=== PATIENT | female | born 1950 | race Caucasian/White ===

== ENCOUNTER 2016-07-06 14:54 | Emergency (ER) | payer BC, OTHER ==
[~2016-07-06] VITALS: Ht 157.5 cm; Wt 71.0 kg
[~2016-07-06 14:54] MED LIST: ACT30 PO; GLIM2TAB PO; LISI-729 PO; LPT/40 PO; ZNTT/150 PO
[2016-07-06 14:59] VITALS: Ht 157.5 cm; Wt 71.0 kg
[2016-07-06] MEDS ORDERED: ONDANSETRON INJ 2 MG/ML 2 ML VIAL IV STA (15:07)
[2016-07-06] MEDS ORDERED: SODIUM CHLORIDE 0.9% 1000ML 1,000 ML IV STA (15:07)
[2016-07-06 15:37] LABS: HEMATOCRIT 36.9 % (37-47); MEAN CELL VOLUME 88.1 fL (80-100); MEAN CORPUSCULAR HEMOGLOBIN 30.8 pg (25-34); MEAN PLATELET VOLUME 10.3 fL (7.4-10.4); PLATELET COUNT 121 K/uL (130-400); RED BLOOD COUNT 4.19 M/uL (4.2-5.4)
[2016-07-06 15:52] LABS: BUN/CREATININE RATIO 25.1 (10-20); CALCIUM 8.1 mg/dl (8.5-10.1); CREATININE 1.4 mg/dl (0.60-1.20)
[2016-07-06 15:53] LABS: COMPLETE YES; EOS % 0.2 %; IG% 0.3 %; LYMPH % 12.4 %; LYMPH ABS # 0.78 K/uL (1.2-3.4); MONO % 4.4 %; NEUT % 82.7 %
[2016-07-06] MEDS ORDERED: POTASSIUM CHLORIDE 10 MEQ / 100ML WTR IV STA (16:16)
[2016-07-06] MEDS ORDERED: POTASSIUM CHLORIDE 10 MEQ TABCR PO STA (16:16)
[2016-07-06] MEDS ORDERED: ONDA4TAB10 SL (16:19)
[2016-07-06 16:28] VITALS: TEMP 38.5
[2016-07-06] MEDS ORDERED: ACETAMINOPHEN 500 MG TAB PO STA (16:32)
--- NOTE | 2016-07-06 17:38 | EMERGENCY ROOM VISIT NOTE ---
History Report prepared by Christine: Kenzie Chen Under the Supervision of: Dr. Leonardo Harrell M.D. First contact with patient: 15:03 Chief Complaint: DEHYDRATION Stated Complaint: DEHYDRATED Nursing Triage Summary: pt c/o diarrhea since friday has been vomiting went to [facility] sent here for fluids and further eval History of Present Illness The patient is a 66 year old female who presents to the Emergency Room with complaints of persistent, but improving vomiting and diarrhea that began Friday. She currently rates her discomfort as a 1/10 in severity. The patient states that she has been sick since Friday, but states that her symptoms are improving. She states that she went to her PCP today for evaluation and states that she was sent to the emergency department for further work up concerning dehydration. The patient denies any recent antibiotic use, sick contacts with similar symptoms, or foreign travel. She states that her diarrhea is loose and watery. The patient stats that her last emesis episode was this morning. She notes a history of diabetes, stating that she takes medication daily. The patient denies any fever or abdominal pain. Source of History: patient Onset: Friday Position: other (global) Symptom Intensity: 1/10 Quality: other (vomiting and diarrhea) Timing: other (improving) Associated Symptoms: No abdominal pain, No fevers Review of Systems See HPI for pertinent positives & negatives. A total of 10 systems reviewed and were otherwise negative. Past Medical & Surgical Medical Problems: (1) Breast cancer (2) Diabetes Family History No pertinent family history stated. Social History Smoking Status: Never Smoker Marital Status: Housing Status: lives with significant other Occupation Status: employed Current/Historical Medications Scheduled Atorvastatin (Lipitor), 40 MG PO DAILY Glimepiride (Amaryl), 2 MG PO morning Lisinopril (Zestril), 5 MG PO DAILY Ondasetron Odt (Zofran Odt), 4 MG SL Q6H Ranitidine (Zantac), 150 MG PO BID Allergies Coded Allergies: Metformin (Unverified Adverse Reaction, Intermediate, n/v, 07/06/16) Physical Exam Vital Signs Date Time Temp Pulse Resp B/P Pulse Ox O2 Delivery O2 Flow Rate FiO2 07/06/16 16:28 38.5 58 20 120/49 94 Room Air 07/06/16 14:59 36.7 69 18 106/58 95 Room Air Physical Exam Constitutional: Vital signs reviewed. Eyes: Pupils are equal round reactive to light. Conjunctiva are noninjected. ENT: Pharynx is clear without erythema or exudate. Mucous membranes are dry. Neck supple without meningeal signs. Respiratory: Clear to auscultation bilaterally. Breath sounds are equal bilaterally. Cardiovascular: Regular rate and rhythm. No rubs or gallops. GI: Soft, nondistended and nontender. Bowel sounds are present. Musculoskeletal: No peripheral edema. Integumentary: No cyanosis. Neurological: The patient is awake and alert. No focal deficits. Psychiatric: Normal affect. Medical Decision & Procedures Laboratory Results 07/06/16 15:30 Red Blood Count 4.19, Mean Corpuscular Volume 88.1, Mean Corpuscular Hemoglobin 30.8, Mean Corpuscular Hemoglobin Concent 35.0, Mean Platelet Volume 10.3, Neutrophils (%) (Auto) 82.7, Lymphocytes (%) (Auto) 12.4, Monocytes (%) (Auto) 4.4, Eosinophils (%) (Auto) 0.2, Basophils (%) (Auto) 0.0, Neutrophils # (Auto) 5.21, Lymphocytes # (Auto) 0.78, Monocytes # (Auto) 0.28, Eosinophils # (Auto) 0.01, Basophils # (Auto) 0.00 07/06/16 15:30 Test 07/06/16 15:30 White Blood Count 6.30 K/uL (4.8-10.8) Red Blood Count 4.19 M/uL (4.2-5.4) Hemoglobin 12.9 g/dL (12.0-16.0) Hematocrit 36.9 % (37-47) Mean Corpuscular Volume 88.1 fL (80-100) Mean Corpuscular Hemoglobin 30.8 pg (25-34) Mean Corpuscular Hemoglobin Concent 35.0 g/dl (32-36) Platelet Count 121 K/uL (130-400) Mean Platelet Volume 10.3 fL (7.4-10.4) Neutrophils (%) (Auto) 82.7 % Lymphocytes (%) (Auto) 12.4 % Monocytes (%) (Auto) 4.4 % Eosinophils (%) (Auto) 0.2 % Basophils (%) (Auto) 0.0 % Neutrophils # (Auto) 5.21 K/uL (1.4-6.5) Lymphocytes # (Auto) 0.78 K/uL (1.2-3.4) Monocytes # (Auto) 0.28 K/uL (0.11-0.59) Eosinophils # (Auto) 0.01 K/uL (0-0.5) Basophils # (Auto) 0.00 K/uL (0-0.2) RDW Standard Deviation 43.5 fL (36.4-46.3) RDW Coefficient of Variation 13.4 % (11.5-14.5) Immature Granulocyte % (Auto) 0.3 % Immature Granulocyte # (Auto) 0.02 K/uL (0.00-0.02) Anion Gap 15.0 mmol/L (3-11) Est Creatinine Clear Calc Drug Dose 37.5 ml/min Estimated GFR () 45.9 Estimated GFR (Non- 39.6 BUN/Creatinine Ratio 25.1 (10-20) Calcium Level 8.1 mg/dl (8.5-10.1) Laboratory results as reviewed by me. Medications Administered Medications (Trade) Dose Ordered Sig/Dayne Route Start Time Stop Time Status Last Admin Dose Admin Sodium Chloride (Nss 1000ml) 1,000 ml @ 999 mls/hr Q1H1M STAT IV 07/06/16 15:07 07/06/16 16:07 DC 07/06/16 15:26 999 MLS/HR Ondansetron HCl (Zofran Inj) 4 mg NOW STAT IV 07/06/16 15:07 07/06/16 15:08 DC 07/06/16 15:26 4 MG Potassium Chloride (Klor-Con M10) 40 meq NOW STAT PO 07/06/16 16:16 07/06/16 16:17 DC 07/06/16 16:23 40 MEQ Potassium Chloride (Kcl 10 Meq / Wtr) 10 meq NOW STAT IV 07/06/16 16:16 07/06/16 16:17 DC 07/06/16 16:22 10 MEQ Acetaminophen (Tylenol Tab) 1,000 mg NOW STAT PO 07/06/16 16:32 07/06/16 16:33 DC 07/06/16 16:34 1,000 MG ED Course 1504: The patient was evaluated in room B11B. A complete history and physical exam was performed. 1507: Ordered Zofran Inj 4 mg IV, Sodium Chloride 1000 ml @ 999 mls/hr IV. 1616: I reevaluated the patient and she states that she feels better. I discussed the exam findings with her and I discussed the treatment plan. Ordered Potassium Chloride 10 meq IV, Potassium Chloride 40 meq PO. 1632: Per nursing staff, the patient has a fever. Ordered Acetaminophen 1000 mg PO. 1650: I reevaluated the patient and she has no other complaints other than feeling warm. She has a fever at this time. The patient denies any abdominal pain, headaches, or other complaints. Medical Decision This is a 66-year-old female who presents with vomiting and diarrhea. Differential diagnosis includes dehydration, electrolyte abnormality, foodborne illness, gastroenteritis. I did perform a limited focused review of portions of the patient's old chart on the electronic medical record. The patient has had no recent pertinent visits to this hospital. I did evaluate the patient as noted above. The patient is presenting with improving vomiting and diarrhea. She does state that she was sent here by her doctor for dehydration. She did vomit earlier today. She denies any abdominal pain or fever. Her symptoms are consistent with a viral gastroenteritis. IV access was established. I did treat patient with IV Zofran and normal saline IV. I did order and review the patient's blood work as noted in the electronic medical record. She does have hypokalemia likely from the diarrhea. Her white blood cell count is not elevated. I did reassess the patient. She is feeling much better. I did discuss the test results with her. She did state she felt warm and her temperature was elevated. She denies any additional complaints. She denies any headache or abdominal pain. She was given Tylenol for her pain and IV KCl as well as oral potassium. She was discharged with a prescription for Zofran. Impression Primary Impression: Dehydration Additional Impressions: Hypokalemia Vomiting and diarrhea Scribe Attestation The scribe's documentation has been prepared under my direct and personally reviewed by me in its entirety. I confirm that the note above accurately reflects all work, treatment, procedures, and medical decision making performed by me. Departure Information Dispostion Home / Self-Care Prescriptions Ondasetron Odt (ZOFRAN ODT) 4 Mg Tab 4 MG SL Q6H for Nausea, #10 TAB Prov: Leonardo Harrell M.D. 07/06/16 Referrals Ralf Ambrose MD (PCP) Forms HOME CARE DOCUMENTATION FORM, IMPORTANT VISIT INFORMATION, WORK / SCHOOL INSTRUCTIONS Patient Instructions ED Dehydration, ED Diet High Potassium, ED Diet Vomiting Diarrhea, Hypokalemia Dc, My [facility] Additional Instructions You have been examined and treated today on an emergency basis only. This is not a substitute for, or an effort to provide, complete comprehensive medical care. It is impossible to recognize and treat all injuries or illnesses in a single emergency department visit. It is therefore important that you follow up closely with your physician. Call as soon as possible for an appointment. Return for worsening symptoms or if you develop fever, abdominal pain, rectal bleeding, palpitations or any other concerning symptoms. Problem Qualifiers
[2016-07-06 17:49] VITALS: BP 105/56; PULSE 73; O2SAT 96
[2016-07-07] MEDS ORDERED: ACT30 PO (18:48)
[2016-07-07] MEDS ORDERED: LISI10TA PO (18:48)
[2016-07-12] MEDS ORDERED: AMOX875T PO (13:45)
[2016-07-12] MEDS ORDERED: PRD75 PO (13:45)
[2016-07-12] MEDS ORDERED: MCRK20 PO (13:45)
[2016-07-12] MEDS ORDERED: METO50TA17 PO (13:45)
[2016-07-12] MEDS ORDERED: CRD200 PO (13:45)
== END 2016-07-06 17:53 | disposition home or self-care (01) ==
LOC: C.EDB 14:56
DX: E86.0 Dehydration (principal); E87.6 Hypokalemia; R19.7 Diarrhea, unspecified; R11.10 Vomiting, unspecified; E11.9 Type 2 diabetes mellitus without complications; Z79.899 Other long term (current) drug therapy

== ENCOUNTER 2016-07-07 18:01 | Inpatient (IN) | payer BC ==
[~2016-07-07] VITALS: Ht 157.5 cm; Wt 78.9 kg
[~2016-07-07 18:01] MED LIST changes: -ACT30 PO; +ONDA4TAB10 SL
[2016-07-07] MEDS ORDERED: SODIUM CHLORIDE 0.9% 1000ML 1,000 ML IV ONE (18:15)
--- NOTE | 2016-07-07 18:24 | EMERGENCY ROOM VISIT NOTE ---
History Report prepared by Christine: Yesenia Crain Under the Supervision of: Dr. Doug Cano M.D. 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 The patient has been experiencing vomiting and diarrhea for the past 4 days. She was seen in the ED yesterday and was discharged home. Today the patient's [id number] checked on her and states that "she was out of it." The patient was not answering questions appropriately and couldn't walk. EMS was called and the patient was brought to the ED by ambulance. The patient states that her vomiting and diarrhea have resolved. She is still not eating or drinking much and is feeling weak. The patient denies any pain. 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 A total of 10 systems reviewed and were otherwise negative. Past Medical & Surgical Medical Problems: (1) Breast cancer (2) Diabetes Family History No pertinent history stated. Social History Smoking Status: Never Smoker Marital Status: Housing Status: lives with significant other Occupation Status: employed Current/Historical Medications Scheduled Atorvastatin (Lipitor), 40 MG PO DAILY Glimepiride (Amaryl), 2 MG PO morning Lisinopril (Prinivil), 10 MG PO DAILY Ondasetron Odt (Zofran Odt), 4 MG SL Q6H Pioglitazone (Actos), 1 TAB PO DAILY Ranitidine (Zantac), 150 MG PO BID Allergies Coded Allergies: Metformin (Unverified Adverse Reaction, Intermediate, n/v, 07/06/16) Physical Exam Vital Signs Date Time Temp Pulse Resp B/P Pulse Ox O2 Delivery O2 Flow Rate FiO2 07/07/16 20:13 58 18 122/50 94 Room Air 07/07/16 18:19 94 Room Air 07/07/16 18:12 37.6 63 19 110/50 94 Room Air Physical Exam GENERAL: Patient is a disheveled-appearing well-nourished 66 year old female. HEAD: Normocephalic atraumatic EYES: Ocular movements intact pupils equal and react to light OROPHARYNX mucous membranes are moist no exudates present no erythema or edema present NECK: Supple no nuchal rigidity CHEST: Good equal expansion LUNGS: Clear and equal to auscultation CARDIAC: Normal S1 and S2 ABDOMEN: Soft nontender no guarding BACK: No CVA tenderness EXTREMITIES: No pain upon palpation normal muscle strength in all groups no clubbing cyanosis or edema NEURO: Patient is following commands is answering questions appropriately. Alert and oriented x3 Cranial Nerves 2-12 grossly intact Medical Decision & Procedures ER Provider Diagnostic Interpretation: Radiology results as stated below per my review and radiologist interpretation: HEAD CT NONCONTRAST CT DOSE: 1375.95 mGy.cm HISTORY: Mental status change Pt c/o AMS TECHNIQUE: Multiaxial CT images of the head were performed without the use of intravenous contrast. Comparison: None. Findings: The paranasal sinuses and mastoid air cells are clear. The calvarium and skull base are intact. The ventricles and sulci are within normal limits. There is no mass, hematoma, midline shift, or acute infarct. Impression: No acute intracranial abnormality. Electronically signed by: Alphonso Yang M.D. 07/07/2016 7:22 PM Dictated Date/Time: 07/07/2016 7:21 PM ABDOMEN 2VIEW W/PA CHEST RTN CLINICAL HISTORY: Pt c/o AMS confusion COMPARISON STUDY: No previous studies for comparison. FINDINGS: Consolidative infiltrate left lower lobe. Slight plantar left lateral costophrenic angle. Lungs otherwise appear clear. Bowel pattern is nonobstructive. There are no abnormal abdominal calcifications. IMPRESSION: Consolidative left lower lobe infiltrate. Nonobstructive bowel pattern. Electronically signed by: Alphonso Yang M.D. 07/07/2016 8:13 PM Dictated Date/Time: 07/07/2016 8:12 PM Laboratory Results 07/07/16 19:00 Red Blood Count 3.85, Mean Corpuscular Volume 87.3, Mean Corpuscular Hemoglobin 29.9, Mean Corpuscular Hemoglobin Concent 34.2, Mean Platelet Volume 10.2, Neutrophils (%) (Auto) 77.1, Lymphocytes (%) (Auto) 18.6, Monocytes (%) (Auto) 3.7, Eosinophils (%) (Auto) 0.0, Basophils (%) (Auto) 0.2, Neutrophils # (Auto) 3.56, Lymphocytes # (Auto) 0.86, Monocytes # (Auto) 0.17, Eosinophils # (Auto) 0.00, Basophils # (Auto) 0.01 07/07/16 19:00 Test 07/07/16 18:15 07/07/16 18:26 07/07/16 18:51 07/07/16 19:00 Urine Color DK YELLOW Urine Appearance CLOUDY (CLEAR) Urine pH 5.5 (4.5-7.5) Urine Specific [place] 1.022 (1.000-1.030) Urine Protein 2+ (NEG) Urine Glucose (UA) TRACE (NEG) Urine Ketones TRACE (NEG) Urine Occult Blood 2+ (NEG) Urine Nitrite NEG (NEG) Urine Bilirubin NEG (NEG) Urine Urobilinogen NEG (NEG) Urine Leukocyte Esterase TRACE (NEG) Urine WBC (Auto) 5-10 /hpf (0-5) Urine RBC (Auto) 5-10 /hpf (0-4) Urine Hyaline Casts (Auto) 1-5 /lpf (0-5) Urine Epithelial Cells (Auto) >30 /lpf (0-5) Urine Bacteria (Auto) NEG (NEG) Urine Renal Epithelial Cells /lpf (0-5) Urine Pathogenic Casts 5-10 GRANULAR CASTS /lpf (0) Bedside Lactic Acid Venous 1.61 mmol/L (0.90-1.70) White Blood Count 4.62 K/uL (4.8-10.8) Red Blood Count 3.85 M/uL (4.2-5.4) Hemoglobin 11.5 g/dL (12.0-16.0) Hematocrit 33.6 % (37-47) Mean Corpuscular Volume 87.3 fL (80-100) Mean Corpuscular Hemoglobin 29.9 pg (25-34) Mean Corpuscular Hemoglobin Concent 34.2 g/dl (32-36) Platelet Count 105 K/uL (130-400) Mean Platelet Volume 10.2 fL (7.4-10.4) Neutrophils (%) (Auto) 77.1 % Lymphocytes (%) (Auto) 18.6 % Monocytes (%) (Auto) 3.7 % Eosinophils (%) (Auto) 0.0 % Basophils (%) (Auto) 0.2 % Neutrophils # (Auto) 3.56 K/uL (1.4-6.5) Lymphocytes # (Auto) 0.86 K/uL (1.2-3.4) Monocytes # (Auto) 0.17 K/uL (0.11-0.59) Eosinophils # (Auto) 0.00 K/uL (0-0.5) Basophils # (Auto) 0.01 K/uL (0-0.2) RDW Standard Deviation 43.4 fL (36.4-46.3) RDW Coefficient of Variation 13.5 % (11.5-14.5) Immature Granulocyte % (Auto) 0.4 % Immature Granulocyte # (Auto) 0.02 K/uL (0.00-0.02) Prothrombin Time 11.7 SECONDS (9.0-12.0) Prothromb Time International Ratio 1.1 (0.9-1.1) Activated Partial Thromboplast Time 34.1 SECONDS (21.0-31.0) Partial Thromboplastin Ratio 1.3 Anion Gap 14.0 mmol/L (3-11) Est Creatinine Clear Calc Drug Dose 48.3 ml/min Estimated GFR () 61.4 Estimated GFR (Non- 53.0 BUN/Creatinine Ratio 25.2 (10-20) Calcium Level 7.4 mg/dl (8.5-10.1) Total Bilirubin 0.5 mg/dl (0.2-1) Aspartate Amino Transf (AST/SGOT) 69 U/L (15-37) Alanine Aminotransferase (ALT/SGPT) 34 U/L (12-78) Alkaline Phosphatase 41 U/L (45-117) Total Creatine Kinase 670 U/L (26-192) Creatine Kinase MB 4.0 ng/ml (0.5-3.6) Creatine Kinase MB Ratio 0.6 (0-3.0) Troponin I 0.075 ng/ml (0-0.045) Total Protein 6.5 gm/dl (6.4-8.2) Albumin 2.8 gm/dl (3.4-5.0) Globulin 3.7 gm/dl (2.5-4.0) Albumin/Globulin Ratio 0.8 (0.9-2) Labs reviewed by ED physician. Medications Administered Medications (Trade) Dose Ordered Sig/Dayne Route Start Time Stop Time Status Last Admin Dose Admin Sodium Chloride (Nss 1000ml) 1,000 ml @ 999 mls/hr Q1H1M ONCE IV 07/07/16 18:15 07/07/16 19:15 DC 07/07/16 18:59 999 MLS/HR Potassium Chloride (Klor-Con M10) 40 meq NOW STAT PO 07/07/16 19:36 07/07/16 19:37 DC 07/07/16 20:15 40 MEQ Levofloxacin (Levaquin / D5W) 500 mg NOW STAT IV 07/07/16 20:24 07/07/16 20:26 DC 07/07/16 20:37 500 MG ECG Indication: altered mental status Rate (beats per minute): 79 Rhythm: normal sinus Findings: no acute ischemic change, no ectopy ED Course 1806: Past medical records reviewed. The patient was evaluated in room B3B. A complete history and physical examination was performed. 1814: NSS 1000 ml @ 999 mls/hr IV 1922: I updated the patient and her family. 1935: Klor-Con M10 40 meq PO 1948: I checked on the patient at this time, but she was at x-ray. 2019: I reassessed the patient at this time. She is resting comfortably. I discussed the results and treatment plan with the patient and her family. I answered all pertaining questions that they had. They expressed understanding and verbalized agreement. 2023: Levofloxacin 500 mg IV, Zosyn 4.5 gm IV 2030: I spoke with Dr. Miles. We discussed the patients results and treatment plan. The patient will be evaluated by the [facility] for further management. Medical Decision Differential diagnosis: Etiologies such as metabolic, infection, hypoglycemia, electrolyte abnormalities , cardiac sources, intracerebral event, toxicologic, neurologic, as well as others were entertained. This is a 66-year-old female who presents emergency Department with altered mental status. The patient was just seen in the emergency department yesterday. The patient appears to have pneumonia on her chest x-ray and for this reason the patient was pancultured and started on Zosyn as well as Levaquin. Her cardiac enzymes are also elevated. Flu swabs were obtained. The patient's potassium was also repleted. I then discussed the case with the hospitalist service who agreed to admit the patient. Patient and family were in agreement with the treatment plan. Consults Time Called: 2025 Consulting Physician: Dr. Miles Returned Call: [address] Miles. We discussed the patients results and treatment plan. The patient will be evaluated by the [facility] for further management. Impression Primary Impression: Altered mental status Additional Impressions: Urinary tract infection Pneumonia NSTEMI (non-ST elevated myocardial infarction) Critical Care I have personally spent greater than 30 minutes of critical care time in the direct management of this patient. This includes bedside care, interpretation of diagnostic studies, and testing, discussion with consultants, patient, and family members, and other required patient management activities. This 30 minutes is in excess of all separately billable procedures. Scribe Attestation The scribe's documentation has been prepared under my direction and personally reviewed by me in its entirety. I confirm that the note above accurately reflects all work, treatment, procedures, and medical decision making performed by me. Departure Information Dispostion Being Evaluated By Hospitalist Referrals Ralf Ambrose MD (PCP) Patient Instructions My [facility] Problem Qualifiers Primary Impression: Altered mental status Altered mental status type: disorientation Qualified Codes: R41.0 - Disorientation, unspecified Additional Impressions: Urinary tract infection Urinary tract infection type: acute cystitis Hematuria presence: with hematuria Qualified Codes: N30.01 - Acute cystitis with hematuria Pneumonia Pneumonia type: due to unspecified organism Laterality: unspecified laterality Lung location: unspecified part of lung Qualified Codes: J18.9 - Pneumonia, unspecified organism
[2016-07-07 18:41] LABS: URINE APPEARANCE CLOUDY (CLEAR); URINE BILIRUBIN NEG (NEG); URINE COLOR DK YELLOW; URINE EPITHELIAL CELL AUTO >30 /lpf (0-5); URINE NITRITE NEG (NEG); URINE PH 5.5 (4.5-7.5); URINE SPECIFIC GRAVITY 1.022 (1.000-1.030); UROBILINOGEN NEG (NEG); ZZUR CULT IF INDIC CLEAN CATCH NO
[2016-07-07 18:44] LABS: MANUAL MICROSCOPIC REQUIRED? NO; REVIEW REQ? YES
[2016-07-07] MEDS ORDERED: LISI10TA PO (18:48)
[2016-07-07] MEDS ORDERED: ACT30 PO (18:48)
[2016-07-07 19:01] LABS: URINE PATH CASTS 5-10 GRANULAR CASTS /lpf (0)
[2016-07-07 19:13] LABS: HEMATOCRIT 33.6 % (37-47); MEAN CELL VOLUME 87.3 fL (80-100); MEAN CORPUSCULAR HEMOGLOBIN 29.9 pg (25-34); MEAN CORPUSCULAR HGB CONC 34.2 g/dl (32-36); MEAN PLATELET VOLUME 10.2 fL (7.4-10.4); PLATELET COUNT 105 K/uL (130-400); RED BLOOD COUNT 3.85 M/uL (4.2-5.4); WHITE BLOOD COUNT 4.62 K/uL (4.8-10.8)
[2016-07-07 19:22] LABS: INR 1.1 (0.9-1.1); PARTIAL THROMBOPLASTIN RATIO 1.3; PROTHROMBIN TIME (PATIENT) 11.7 SECONDS (9.0-12.0)
--- NOTE | 2016-07-07 19:23 | DIAGNOSTIC IMAGING REPORT ---
HEAD CT NONCONTRAST CT DOSE: 1375.95 mGy.cm HISTORY: Mental status change Pt c/o AMS TECHNIQUE: Multiaxial CT images of the head were performed without the use of intravenous contrast. Comparison: None. Findings: The paranasal sinuses and mastoid air cells are clear. The calvarium and skull base are intact. The ventricles and sulci are within normal limits. There is no mass, hematoma, midline shift, or acute infarct. Impression: No acute intracranial abnormality. Electronically signed by: Alphonso Yang M.D. 07/07/2016 7:22 PM Dictated Date/Time: 07/07/2016 7:21 PM
[2016-07-07 19:34] LABS: BUN/CREATININE RATIO 25.2 (10-20); CALCIUM 7.4 mg/dl (8.5-10.1); CREATININE 1.1 mg/dl (0.60-1.20); POTASSIUM 3.1 mmol/L (3.5-5.1)
[2016-07-07] MEDS ORDERED: POTASSIUM CHLORIDE 10 MEQ TABCR PO STA (19:36)
[2016-07-07 19:38] LABS: BASO % 0.2 %; BASO ABS # 0.01 K/uL (0-0.2); COMPLETE YES; IG% 0.4 %; LYMPH % 18.6 %; LYMPH ABS # 0.86 K/uL (1.2-3.4); MONO % 3.7 %; NEUT % 77.1 %
[2016-07-07 19:40] LABS: ALB/GLOB RATIO 0.8 (0.9-2); CKMB/CK RATIO 0.6 (0-3.0)
--- NOTE | 2016-07-07 20:15 | DIAGNOSTIC IMAGING REPORT ---
ABDOMEN 2VIEW W/PA CHEST RTN CLINICAL HISTORY: Pt c/o AMS confusion COMPARISON STUDY: No previous studies for comparison. FINDINGS: Consolidative infiltrate left lower lobe. Slight plantar left lateral costophrenic angle. Lungs otherwise appear clear. Bowel pattern is nonobstructive. There are no abnormal abdominal calcifications. IMPRESSION: Consolidative left lower lobe infiltrate. Nonobstructive bowel pattern. Electronically signed by: Alphonso Yang M.D. 07/07/2016 8:13 PM Dictated Date/Time: 07/07/2016 8:12 PM
[2016-07-07] MEDS ORDERED: PIPERACILLIN/TAZOBACTAM 4.5 GM/100ML D5W IV STA (20:24)
[2016-07-07] MEDS ORDERED: LEVAQUIN 500MG / 100ML D5W IV STA (20:24)
--- NOTE | 2016-07-07 21:23 | History and Physical ---
History & Physical Date & Time of Service: Jul 07, 2016 at 20:56 Chief Complaint: Confusion Primary Care Physician: Ralf Ambrose MD History of Present Illness 66 year old female who presents to the ER with confusion. Patient was seen in the ER yesterday for nausea and diarrhea. She was diagnosed with viral gastroenteritis and sent home with a prescription for Zofran. Patient's sister in law is at the bedside who reports she spoke with the patient on the phone today and she noted she was confused. When she got to her house, she reports she was very weak and was having trouble walking. Diarrhea had been going on for 3 days. She reports she hasn't had any diarrhea for the past two days. She says she has taken Imodium. She has had a poor appetite but no nausea, vomiting , or abdominal pain. She denies fever and chills. No urinary symptoms. She denies chest pain and shortness of breath. No lightheadedness, dizziness, diaphoresis, or syncopal events. In the ER today, U/A is abnormal. CXR is showing consolidation in the left base. Creat is 1.1 (improved from 1.4 yesterday). K+ is 3.1. She has a low grade temp of 37.6 but otherwise is hemodynamically stable. She was treated with IVF, PO potassium, Levaquin, and Zosyn. Past Medical/Surgical History Medical Problems: (1) Breast cancer Status: Resolved (2) Breast cancer Status: Chronic (3) Diastolic dysfunction Status: Chronic (4) DM type 2 (diabetes mellitus, type 2) Status: Chronic (5) GERD (gastroesophageal reflux disease) Status: Chronic (6) HTN (hypertension) Status: Chronic Surgical Problems: (1) H/O dilation and curettage Status: Chronic (2) History of lymph node dissection of right axilla Status: Chronic (3) History of partial mastectomy of right breast Status: Chronic (4) History of tonsillectomy Status: Chronic Family History Diabetes mellitus MOTHER FH: CAD (coronary artery disease) FATHER ([place] in his 60s) Social History Smoking Status: Never Smoker Alcohol Use: none Marital Status: Immunizations History of Tetanus Vaccine?: Yes Tetanus Immunization Date: Oct 03, 2008 Allergies Coded Allergies: Metformin (Unverified Adverse Reaction, Intermediate, n/v, 07/06/16) Home Medications Scheduled Atorvastatin (Lipitor), 40 MG PO DAILY Glimepiride (Amaryl), 2 MG PO morning Lisinopril (Prinivil), 10 MG PO DAILY Ondasetron Odt (Zofran Odt), 4 MG SL Q6H Pioglitazone (Actos), 1 TAB PO DAILY Ranitidine (Zantac), 150 MG PO BID Review of Systems 10 point review of systems was completed with the pertinent positives and negatives noted per the HPI Physical Exam Vital Signs Date Time Temp Pulse Resp B/P Pulse Ox O2 Delivery O2 Flow Rate FiO2 07/07/16 20:13 58 18 122/50 94 Room Air 07/07/16 18:19 94 Room Air 07/07/16 18:12 37.6 63 19 110/50 94 Room Air General Appearance: no apparent distress Head: normocephalic Eyes: normal inspection ENT: hearing grossly normal Neck: supple, no JVD Respiratory/Chest: no respiratory distress, + decreased breath sounds Cardiovascular: regular rate, rhythm, no edema, normal peripheral pulses Abdomen/GI: normal bowel sounds, non tender, soft Extremities/Musculoskelatal: normal inspection, no calf tenderness Neurologic/Psych: no motor/sensory deficits, alert, oriented x 3 (slow to respond) Skin: normal color, warm/dry Diagnostics Laboratory Results Results Past 24 Hours Test 07/07/16 18:15 07/07/16 18:26 07/07/16 18:51 07/07/16 19:00 Range/Units Urine Color DK YELLOW Urine Appearance CLOUDY CLEAR Urine pH 5.5 4.5-7.5 Urine Specific [place] 1.022 1.000-1.030 Urine Protein 2+ NEG Urine Glucose (UA) TRACE NEG Urine Ketones TRACE NEG Urine Occult Blood 2+ NEG Urine Nitrite NEG NEG Urine Bilirubin NEG NEG Urine Urobilinogen NEG NEG Urine Leukocyte Esterase TRACE NEG Urine WBC (Auto) 5-10 0-5 /hpf Urine RBC (Auto) 5-10 0-4 /hpf Urine Hyaline Casts (Auto) 1-5 0-5 /lpf Urine Epithelial Cells (Auto) >30 0-5 /lpf Urine Bacteria (Auto) NEG NEG Urine Renal Epithelial Cells 0-5 /lpf Urine Pathogenic Casts 5-10 GRANULAR CASTS 0 /lpf Bedside Lactic Acid Venous 1.61 0.90-1.70 mmol/L White Blood Count 4.62 4.8-10.8 K/uL Red Blood Count 3.85 4.2-5.4 M/uL Hemoglobin 11.5 12.0-16.0 g/dL Hematocrit 33.6 37-47 % Mean Corpuscular Volume 87.3 80-100 fL Mean Corpuscular Hemoglobin 29.9 25-34 pg Mean Corpuscular Hemoglobin Concent 34.2 32-36 g/dl Platelet Count 105 130-400 K/uL Mean Platelet Volume 10.2 7.4-10.4 fL Neutrophils (%) (Auto) 77.1 % Lymphocytes (%) (Auto) 18.6 % Monocytes (%) (Auto) 3.7 % Eosinophils (%) (Auto) 0.0 % Basophils (%) (Auto) 0.2 % Neutrophils # (Auto) 3.56 1.4-6.5 K/uL Lymphocytes # (Auto) 0.86 1.2-3.4 K/uL Monocytes # (Auto) 0.17 0.11-0.59 K/uL Eosinophils # (Auto) 0.00 0-0.5 K/uL Basophils # (Auto) 0.01 0-0.2 K/uL RDW Standard Deviation 43.4 36.4-46.3 fL RDW Coefficient of Variation 13.5 11.5-14.5 % Immature Granulocyte % (Auto) 0.4 % Immature Granulocyte # (Auto) 0.02 0.00-0.02 K/uL Prothrombin Time 11.7 9.0-12.0 SECONDS Prothromb Time International Ratio 1.1 0.9-1.1 Activated Partial Thromboplast Time 34.1 21.0-31.0 SECONDS Partial Thromboplastin Ratio 1.3 Sodium Level 137 136-145 mmol/L Potassium Level 3.1 3.5-5.1 mmol/L Chloride Level 103 98-107 mmol/L Carbon Dioxide Level 20 21-32 mmol/L Anion Gap 14.0 3-11 mmol/L Blood Urea Nitrogen 28 7-18 mg/dl Creatinine 1.10 0.60-1.20 mg/dl Est Creatinine Clear Calc Drug Dose 48.3 ml/min Estimated GFR () 61.4 Estimated GFR (Non- 53.0 BUN/Creatinine Ratio 25.2 10-20 Random Glucose 182 70-99 mg/dl Calcium Level 7.4 8.5-10.1 mg/dl Total Bilirubin 0.5 0.2-1 mg/dl Aspartate Amino Transf (AST/SGOT) 69 15-37 U/L Alanine Aminotransferase (ALT/SGPT) 34 12-78 U/L Alkaline Phosphatase 41 45-117 U/L Total Creatine Kinase 670 26-192 U/L Creatine Kinase MB 4.0 0.5-3.6 ng/ml Creatine Kinase MB Ratio 0.6 0-3.0 Troponin I 0.075 0-0.045 ng/ml Total Protein 6.5 6.4-8.2 gm/dl Albumin 2.8 3.4-5.0 gm/dl Globulin 3.7 2.5-4.0 gm/dl Albumin/Globulin Ratio 0.8 0.9-2 Microbiology Results 07/07/16 Blood Culture, Received Pending 07/07/16 Blood Culture, Received Pending 07/07/16 C.difficile Toxin B Gene (PCR), Estuardo Batch Pending 07/07/16 Shiga Toxin Test, Estuardo Batch Pending 07/07/16 Stool Culture, Estuardo Batch Pending Diagnostic Radiology Head CT Impression: No acute intracranial abnormality. CXR IMPRESSION: Consolidative left lower lobe infiltrate. Nonobstructive bowel pattern. Impression Assessment and Plan ALTERED MENTAL STATUS, GENERALIZED WEAKNESS, ? UTI - admit to tele - altered mental status likely due to underlying infection (? UTI, viral gastroenteritis) - low grade fever in ED - otherwise no signs of sepsis; lactic acid WNL - head CT negative; no focal deficits noted on exam however could consider MRI if doesn't improve - CXR being read as consolidation in left base however no respiratory complaints - s/p Zosyn and Levaquin in ED - further antibiotics as per Dr. Miles - U/A abnormal - obtain culture LETY - likely prerenal due to poor PO intake and diarrhea - baseline creat 0.7 - 1.4 yesterday -> 1.1 today - IVF, follow up labs - hold ACEi - monitor volume status closely due to diastolic dysfunction ELEVATED TROP - likely due to acute illness - no reports of chest pain, EKG without acute ST changes - continue to cycle enzymes - check resting echo DIARRHEA - seems to be resolving - ? viral gastroenteritis - stool studies HYPOKALEMIA - likely due to diarrhea - replace, check Mg+ - follow up K+ in AM HTN - BP controlled, holding Lisinopril due to LETY DIASTOLIC DYSFUNCTION - echo 01/2016 - EF 60-64%, grade II diastolic dysfunction - not on routine diuretics - on the dry side with LETY - monitor volume status DM - hgb a1c 6.2 04/2016 - hold oral agents and utilize SSI while hospitalized DISPO - In my clinical judgment this beneficiary meets acute admission criteria, established by [facility], that includes being hospitalized through two midnights. Assessment/Plan IM ATTENDING : Patient seen and examined. Preceding documentation by ARIANNA Williamson, reviewed. FINAL ASSESSMENT AND PLAN as follows: 1. Sepsis possible source is community acquired pneumonia likely atypical w/ dry cough sx 2. hypokalemia; clinical dehydration 3. troponinemia secondary to sepsis. 4. thrombocytopenia possibly secondary to sepsis 5. Hypertension, blood pressure on the lower side. 6. DM2 on oral meds, well controlled as of recent outpx A1c 7. R breast cancer, status post surgery and radiation PCU CS, Levaquin IV fluids replace potassium. Check mag ff trop ISS BG goal 140-180 PT, OT eval. DVT prophylaxis, SCDs RE thrombocytopenia. Full code.
[2016-07-07] MEDS ORDERED: ALBUT/IPRATROP 3MG/0.5MG NEB 3 ML VIAL INH STA (22:03)
[2016-07-07] MEDS ORDERED: GLUCOSE 40% GEL 15 GM TUBE PO PRN (22:15)
[2016-07-07] MEDS ORDERED: TRAMADOL HCL 50 MG TAB PO PRN (22:15)
[2016-07-07] MEDS ORDERED: DEXTROSE 50% 50 ML SYR IV PRN (22:15)
[2016-07-07] MEDS ORDERED: NITROGLYCERIN 0.4 MG SL PER TAB CHARGE SL PRN (22:15)
[2016-07-07] MEDS ORDERED: HYDROmorphone INJ 0.5 MG/0.5 ML SYR IV PRN (22:15)
[2016-07-07] MEDS ORDERED: GLUCOSE 10 TABS/TUBE PO PRN (22:15)
[2016-07-07] MEDS ORDERED: ALBUT/IPRATROP 3MG/0.5MG NEB 3 ML VIAL INH PRN (22:15)
[2016-07-07] MEDS ORDERED: GLUCAGON FOR INJ 1 MG VIAL SQ PRN (22:15)
[2016-07-07] MEDS ORDERED: ACETAMINOPHEN 325 MG TAB PO PRN (22:15)
[2016-07-07 22:25] LABS: MAGNESIUM 1.7 mg/dl (1.8-2.4)
[2016-07-07 22:56] LABS: INFLUENZA A PCR Neg for Influ A (NEG); INFLUENZA B PCR Neg for Influ B (NEG)
[2016-07-07 23:25] VITALS: BP 107/61; PULSE 79; TEMP 38.1; O2SAT 92; Ht 157.5 cm; Wt 78.9 kg
[2016-07-07] MEDS ORDERED: MAGNESIUM SULFATE 1GM / D5W 1 GM in PREMIXED IN D5W 100 ML IV ONE (23:30)
[2016-07-07] MEDS ORDERED: NSS + 20MEQ KCL 1000ML 1,000 ML IV ONE (23:30)
[2016-07-08] VITALS (10 sets, daily range): BP systolic 93–130; BP diastolic 57–76; PULSE 63–182; TEMP 36.7–38.3; O2SAT 92–95
[2016-07-08] MEDS ORDERED: CALCIUM CARBONATE 500 MG CHEWABLE PO ONE (01:00)
[2016-07-08] MEDS: CALCIUM CARBONATE 500 MG CHEWABLE PO PRN ×2 (06:05→19:42)
--- NOTE | 2016-07-08 07:17 | HISTORY & PHYSICAL EXAMINATION ---
DATE OF ADMISSION: 07/07/2016 IM ATTENDING : Patient seen and examined. Preceding documentation by ARIANNA Williamson, reviewed. FINAL ASSESSMENT AND PLAN as follows: 1. Sepsis possible source is community acquired pneumonia likely atypical w/ dry cough sx 2. hypokalemia; clinical dehydration 3. troponinemia secondary to sepsis. 4. thrombocytopenia possibly secondary to sepsis 5. Hypertension, blood pressure on the lower side. 6. DM2 on oral meds, well controlled as of recent outpx A1c 7. R breast cancer, status post surgery and radiation PCU CS, Levaquin IV fluids replace potassium. Check mag ff trop ISS BG goal 140-180 PT, OT eval. DVT prophylaxis, SCDs RE thrombocytopenia. Full code. MTDD
[2016-07-08 07:19] LABS: HEMATOCRIT 34.5 % (37-47); MEAN CELL VOLUME 86.9 fL (80-100); MEAN CORPUSCULAR HEMOGLOBIN 29.5 pg (25-34); MEAN CORPUSCULAR HGB CONC 33.9 g/dl (32-36); MEAN PLATELET VOLUME 10.3 fL (7.4-10.4); PLATELET COUNT 102 K/uL (130-400); RED BLOOD COUNT 3.97 M/uL (4.2-5.4); WHITE BLOOD COUNT 5.59 K/uL (4.8-10.8)
[2016-07-08] MEDS: INSULIN ASPART 100 UNITS/ML 3 ML PEN SC SCH ×4 (07:39→21:00)
[2016-07-08] MEDS: LEVOFLOXACIN 250 MG TAB PO SCH ×2 (07:41→11:24)
[2016-07-08] MEDS: RANITIDINE HCL 150 MG TAB PO SCH ×2 (07:42→21:29)
[2016-07-08 07:53] LABS: BUN/CREATININE RATIO 23.3 (10-20); CALCIUM 7.6 mg/dl (8.5-10.1); CREATININE 0.94 mg/dl (0.60-1.20); MAGNESIUM 2.1 mg/dl (1.8-2.4); POTASSIUM 3.6 mmol/L (3.5-5.1)
[2016-07-08 08:38] LABS: BASO % 0.2 %; BASO ABS # 0.01 K/uL (0-0.2); COMPLETE YES; IG% 0.5 %; LYMPH % 19.5 %; LYMPH ABS # 1.09 K/uL (1.2-3.4); NEUT % 76.8 %
[2016-07-08] MEDS ORDERED: LISINOPRIL 10 MG TAB PO SCH (09:00)
[2016-07-08] MEDS ORDERED: LEVOFLOXACIN CONSULT ACTIVE PRN (09:00)
[2016-07-08] MEDS ORDERED: LEVOFLOXACIN 500 MG TAB PO ONE (12:00)
--- NOTE | 2016-07-08 13:48 | Progress Note ---
Internal Med Progress Note Date of Service: Jul 08, 2016. Provider Documentation: SUBJECTIVE: Patient is seen and examined at bedside. Currently oriented, follows simple commands. Intermittently confused per family. States having dry cough and diarrhea. Denies any abd pain, chest pain, SOB. Also states weakness is better. Family at bedside. Denies any recent travel. OBJECTIVE: Vital Signs-as noted below Physical Exam: Vitals signs as noted above General Appearance:Moderately built and nourished, no apparent distress Head: normocephalic, Atraumatic Eyes: normal inspection, EOMI, PERRLA Neck: supple, Trachea midline Respiratory/Chest: Normal breath sounds, No accessory muscle use Cardiovascular: S1, S2, No murmur Abdomen/GI:Soft, Non tender, Bowel sounds present Extremities/Musculoskelatal:normal inspection, no edema Neurologic/Psych:AAOX3, grossly no focal neurological deficits Skin: normal color, warm Lab data as noted below. ASSESSMENT & PLAN: ALTERED MENTAL STATUS, GENERALIZED WEAKNESS CAP DD:metabolic encephalopathy secondary to infection ? viral gastroenteritis lactic acid WNL CT Head: No acute pathology CXR: Consolidative left lower lobe infiltrate Continue levaquin for now U/A culture: Negative Follow up blood cultures Neuro checks Will get MRI brain Neurology consulted Stool Studies: C.diff negative, other studies pending Avoid narcotic meds LETY/Dehydration likely prerenal due to poor PO intake and diarrhea Baseline creat 0.7 Cr levels 1.4 prior to admission Monitor Cr levels Gentle IVF as history of diastolic dysfunction ELEVATED TROP likely due to acute illness no reports of chest pain, EKG without acute ST changes Check ECHO Denies any chest pain DIARRHEA Likely ? viral gastroenteritis Follow up stool studies Stool for C.diff: Negative HYPOKALEMIA likely due to diarrhea Resolved Continue to monitor HTN BP controlled Holding Lisinopril due to LETY DIASTOLIC DYSFUNCTION ECHO 01/2016 - EF 60-64%, grade II diastolic dysfunction not on routine diuretics No signs of volume overload DM II hgb a1c 6.2 04/2016 hold oral agents SSI, accu checks H/O R breast cancer, status post surgery and radiation DVT Px SCDs DISPO Continue to monitor Vital Signs: Date Time Temp Pulse Resp B/P Pulse Ox O2 Delivery O2 Flow Rate FiO2 07/08/16 11:35 Room Air 07/08/16 11:31 36.7 69 18 113/73 93 Room Air 07/08/16 08:24 Room Air 07/08/16 08:05 38.1 69 18 130/69 95 Room Air 07/08/16 04:00 Room Air 07/08/16 03:54 37.3 72 21 110/65 92 Room Air 07/07/16 23:59 Room Air 07/07/16 23:25 38.1 79 18 107/61 92 Room Air 07/07/16 22:37 57 20 92/59 95 Room Air 07/07/16 20:13 58 18 122/50 94 Room Air 07/07/16 18:19 94 Room Air 07/07/16 18:12 37.6 63 19 110/50 94 Room Air Lab Results: Results Past 24 Hours Test 07/07/16 18:26 07/07/16 18:51 07/07/16 19:00 07/07/16 20:53 Range/Units Urine Color DK YELLOW Urine Appearance CLOUDY CLEAR Urine pH 5.5 4.5-7.5 Urine Specific [place] 1.022 1.000-1.030 Urine Protein 2+ NEG Urine Glucose (UA) TRACE NEG Urine Ketones TRACE NEG Urine Occult Blood 2+ NEG Urine Nitrite NEG NEG Urine Bilirubin NEG NEG Urine Urobilinogen NEG NEG Urine Leukocyte Esterase TRACE NEG Urine WBC (Auto) 5-10 0-5 /hpf Urine RBC (Auto) 5-10 0-4 /hpf Urine Hyaline Casts (Auto) 1-5 0-5 /lpf Urine Epithelial Cells (Auto) >30 0-5 /lpf Urine Bacteria (Auto) NEG NEG Urine Renal Epithelial Cells 0-5 /lpf Urine Pathogenic Casts 5-10 GRANULAR CASTS 0 /lpf Bedside Lactic Acid Venous 1.61 0.90-1.70 mmol/L White Blood Count 4.62 4.8-10.8 K/uL Red Blood Count 3.85 4.2-5.4 M/uL Hemoglobin 11.5 12.0-16.0 g/dL Hematocrit 33.6 37-47 % Mean Corpuscular Volume 87.3 80-100 fL Mean Corpuscular Hemoglobin 29.9 25-34 pg Mean Corpuscular Hemoglobin Concent 34.2 32-36 g/dl Platelet Count 105 130-400 K/uL Mean Platelet Volume 10.2 7.4-10.4 fL Neutrophils (%) (Auto) 77.1 % Lymphocytes (%) (Auto) 18.6 % Monocytes (%) (Auto) 3.7 % Eosinophils (%) (Auto) 0.0 % Basophils (%) (Auto) 0.2 % Neutrophils # (Auto) 3.56 1.4-6.5 K/uL Lymphocytes # (Auto) 0.86 1.2-3.4 K/uL Monocytes # (Auto) 0.17 0.11-0.59 K/uL Eosinophils # (Auto) 0.00 0-0.5 K/uL Basophils # (Auto) 0.01 0-0.2 K/uL RDW Standard Deviation 43.4 36.4-46.3 fL RDW Coefficient of Variation 13.5 11.5-14.5 % Immature Granulocyte % (Auto) 0.4 % Immature Granulocyte # (Auto) 0.02 0.00-0.02 K/uL Prothrombin Time 11.7 9.0-12.0 SECONDS Prothromb Time International Ratio 1.1 0.9-1.1 Activated Partial Thromboplast Time 34.1 21.0-31.0 SECONDS Partial Thromboplastin Ratio 1.3 Sodium Level 137 136-145 mmol/L Potassium Level 3.1 3.5-5.1 mmol/L Chloride Level 103 98-107 mmol/L Carbon Dioxide Level 20 21-32 mmol/L Anion Gap 14.0 3-11 mmol/L Blood Urea Nitrogen 28 7-18 mg/dl Creatinine 1.10 0.60-1.20 mg/dl Est Creatinine Clear Calc Drug Dose 48.3 ml/min Estimated GFR () 61.4 Estimated GFR (Non- 53.0 BUN/Creatinine Ratio 25.2 10-20 Random Glucose 182 70-99 mg/dl Calcium Level 7.4 8.5-10.1 mg/dl Total Bilirubin 0.5 0.2-1 mg/dl Aspartate Amino Transf (AST/SGOT) 69 15-37 U/L Alanine Aminotransferase (ALT/SGPT) 34 12-78 U/L Alkaline Phosphatase 41 45-117 U/L Total Creatine Kinase 670 26-192 U/L Creatine Kinase MB 4.0 0.5-3.6 ng/ml Creatine Kinase MB Ratio 0.6 0-3.0 Troponin I 0.075 0-0.045 ng/ml Total Protein 6.5 6.4-8.2 gm/dl Albumin 2.8 3.4-5.0 gm/dl Globulin 3.7 2.5-4.0 gm/dl Albumin/Globulin Ratio 0.8 0.9-2 Influenza Type A (RT-PCR) Neg for Influ A NEG Influenza Type A Antigen Neg for Influ A NEG Influenza Type B Antigen Neg for Influ B NEG Influenza Type B (RT-PCR) Neg for Influ B NEG Test 07/07/16 21:40 07/08/16 06:00 07/08/16 06:25 07/08/16 06:39 Range/Units Magnesium Level 1.7 2.1 1.8-2.4 mg/dl Troponin I 0.085 0.092 0-0.045 ng/ml White Blood Count 5.59 4.8-10.8 K/uL Red Blood Count 3.97 4.2-5.4 M/uL Hemoglobin 11.7 12.0-16.0 g/dL Hematocrit 34.5 37-47 % Mean Corpuscular Volume 86.9 80-100 fL Mean Corpuscular Hemoglobin 29.5 25-34 pg Mean Corpuscular Hemoglobin Concent 33.9 32-36 g/dl Platelet Count 102 130-400 K/uL Mean Platelet Volume 10.3 7.4-10.4 fL Neutrophils (%) (Auto) 76.8 % Lymphocytes (%) (Auto) 19.5 % Monocytes (%) (Auto) 3.0 % Eosinophils (%) (Auto) 0.0 % Basophils (%) (Auto) 0.2 % Neutrophils # (Auto) 4.29 1.4-6.5 K/uL Lymphocytes # (Auto) 1.09 1.2-3.4 K/uL Monocytes # (Auto) 0.17 0.11-0.59 K/uL Eosinophils # (Auto) 0.00 0-0.5 K/uL Basophils # (Auto) 0.01 0-0.2 K/uL RDW Standard Deviation 43.7 36.4-46.3 fL RDW Coefficient of Variation 13.6 11.5-14.5 % Immature Granulocyte % (Auto) 0.5 % Immature Granulocyte # (Auto) 0.03 0.00-0.02 K/uL Sodium Level 139 136-145 mmol/L Potassium Level 3.6 3.5-5.1 mmol/L Chloride Level 108 98-107 mmol/L Carbon Dioxide Level 16 21-32 mmol/L Anion Gap 15.0 3-11 mmol/L Blood Urea Nitrogen 22 7-18 mg/dl Creatinine 0.94 0.60-1.20 mg/dl Est Creatinine Clear Calc Drug Dose 56.2 ml/min Estimated GFR () 74.3 Estimated GFR (Non- 64.1 BUN/Creatinine Ratio 23.3 10-20 Random Glucose 163 70-99 mg/dl Calcium Level 7.6 8.5-10.1 mg/dl Bedside Glucose 159 70-90 mg/dl Test 07/08/16 11:11 Range/Units Bedside Glucose 201 70-90 mg/dl Microbiology Results 07/07/16 Blood Culture, Received Pending 07/07/16 Blood Culture, Received Pending 07/08/16 C.difficile Toxin B Gene (PCR) - Final, Complete No C. difficile toxin B gene detected 07/08/16 Shiga Toxin Test, Received Pending 07/08/16 Stool Culture, Received Pending 07/07/16 Urine Culture - Preliminary, Resulted NO GROWTH - LESS THAN 1,000 COLONIES/...
--- NOTE | 2016-07-08 15:51 | Neurology Consultation ---
Neurology Consultation Date of Consultation: Jul 08, 2016. Attending Physician: Landon Roman MD Primary Care Physician: Ralf Ambrose MD Reason for Consultation: altered MS History of Present Illness Source: patient, family Autumn is a 66 year old female with a PMH GERD, DM2, HTN, diastolic dysfunction and breast CA who presents to the ER with confusion. She was seen in the ED for nausea and diarrhea the day prior and was given IV fluids. She was diagnosed with viral gastroenteritis and sent home with a prescription for Zofran. Her daughter is in the room but she lives in [place] but she states she called her and she just didn't sound right so she called a local relative to check on her. Diarrhea had been going on for 3 days. She had no appetite but no nausea, vomiting, or abdominal pain currently. She denies fever and chills.the chest xray showed consolidation in the left base. She had a low grade temp of 37.6. denies CP, SOB, abdominal pain, weakness, numbness tingling, vision change swallowing issues, headache. Past Medical/Surgical History Medical Problems: (1) Dehydration Status: Acute (2) Hypokalemia Status: Acute (3) Vomiting and diarrhea Status: Acute Social History Alcohol Use: none Marital Status: Housing Status: lives with significant other Allergies Coded Allergies: Metformin (Unverified Adverse Reaction, Intermediate, n/v, 07/06/16) Current Inpatient Medications Current Inpatient Medications Medications (Trade) Dose Ordered Sig/Dayne Route Start Time Stop Time Status Last Admin Dose Admin Potassium Chloride/Sodium Chloride (Nss + 20meq KCl 1000ml) 1,000 ml @ 60 mls/hr [id number] ONCE IV 07/07/16 23:30 07/08/16 16:09 07/07/16 23:59 60 MLS/HR Acetaminophen (Tylenol Tab) 650 mg Q4H PRN PO 07/07/16 22:15 08/06/16 22:14 Nitroglycerin (Nitrostat Tab) 0.4 mg UD PRN SL 07/07/16 22:15 08/06/16 22:14 Insulin Aspart (novoLOG ASPART) SLIDING SCALE If C... ACHS SC 07/08/16 07:00 08/07/16 06:59 07/08/16 12:21 1 UNITS Glucose (Glucose 40% Gel) 15-30 GRAMS 15 GRAMS... UD PRN PO 07/07/16 22:15 08/06/16 22:14 Glucose (Glucose Chew Tab) 4-8 Tablets 4 Tabl... UD PRN PO 07/07/16 22:15 08/06/16 22:14 Dextrose (Dextrose 50% 50ML Syringe) 25-50ML OF 50% DW IV FOR... UD PRN IV 07/07/16 22:15 08/06/16 22:14 Glucagon (Glucagon Inj) 1 mg UD PRN SQ 07/07/16 22:15 08/06/16 22:14 Tramadol HCl (Ultram Tab) 25 mg Q6H PRN PO 07/07/16 22:15 08/06/16 22:14 Albuterol/ Ipratropium (Duoneb) 3 ml Q2H PRN INH 07/07/16 22:15 08/06/16 22:14 Levofloxacin (Consult) 1 ea UD PRN N/A 07/08/16 09:00 08/07/16 08:59 Lisinopril (Zestril Tab) 10 mg DAILY PO 07/08/16 09:00 08/07/16 08:59 Future Hold 07/08/16 07:42 10 MG Ranitidine HCl (zANTac TAB) 150 mg BID PO 07/08/16 09:00 08/07/16 08:59 07/08/16 07:42 150 MG Calcium Carbonate (Tums Chew Tab) 500 mg Q6H PRN PO 07/08/16 00:45 08/07/16 00:44 07/08/16 06:05 500 MG Levofloxacin (Levaquin Tab) 750 mg DAILY@11 PO 07/09/16 11:00 07/14/16 23:59 Physical Exam Vital Signs (Past 24 Hrs): Date Time Temp Pulse Resp B/P Pulse Ox O2 Delivery O2 Flow Rate FiO2 07/08/16 15:09 38.0 63 16 93/57 94 Room Air 07/08/16 14:59 Room Air 07/08/16 11:35 Room Air 07/08/16 11:31 36.7 69 18 113/73 93 Room Air 07/08/16 08:24 Room Air 07/08/16 08:05 38.1 69 18 130/69 95 Room Air 07/08/16 04:00 Room Air 07/08/16 03:54 37.3 72 21 110/65 92 Room Air 07/07/16 23:59 Room Air 07/07/16 23:25 38.1 79 18 107/61 92 Room Air 07/07/16 22:37 57 20 92/59 95 Room Air 07/07/16 20:13 58 18 122/50 94 Room Air 07/07/16 18:19 94 Room Air 07/07/16 18:12 37.6 63 19 110/50 94 Room Air Physical Exam: Constitutional: appearance nourished, healthy Ears, Nose, Mouth and Throat: mucous membranes moist, no injection and skin normal, eyes normal Cardiovascular: normal S-1 and S-2 and regular rate and rhythm Respiratory: rales and wheezing Musculoskeletal: no peripheral edema and good distal pulses Skin: no stigmata of neurocutaneous disease noted and normal and intact Eyes: extraocular muscles intact (EOMI) and pupils equal, round and reactive to light (PERRL) NEUROLOGIC EXAMINATION: Mental status: Alert and interactive Oriented to 2017, at [employer], works at [employer], Rey is president Oriented to person, knows her daughter who is in room Speech fluent with no evidence of aphasia Cranial Nerves smile, eye brow raise, symmetric tongue midline Reflexes: Deep tendon reflexes were symmetrical and graded 2/5. Plantar responses were flexor. Sensory: decreased to vibration LE. loss of proprioception GT bilaterally Coordination: finger to nose without bi pass or tremor Gait/Stance: lying in bed Motor: Negative for pronator drift of out stretched arms with eyes closed. 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 4/5 bilaterally hip flex 5/5 plantar flex ext bilaterally 5/5 Laboratory Results Past 24 Hours: 07/08/16 06:25 Red Blood Count 3.97, Mean Corpuscular Volume 86.9, Mean Corpuscular Hemoglobin 29.5, Mean Corpuscular Hemoglobin Concent 33.9, Mean Platelet Volume 10.3, Neutrophils (%) (Auto) 76.8, Lymphocytes (%) (Auto) 19.5, Monocytes (%) (Auto) 3.0, Eosinophils (%) (Auto) 0.0, Basophils (%) (Auto) 0.2, Neutrophils # (Auto) 4.29, Lymphocytes # (Auto) 1.09, Monocytes # (Auto) 0.17, Eosinophils # (Auto) 0.00, Basophils # (Auto) 0.01 07/08/16 06:25 Test 07/07/16 18:26 07/07/16 18:51 07/07/16 19:00 07/07/16 20:53 Urine Color DK YELLOW Urine Appearance CLOUDY (CLEAR) Urine pH 5.5 (4.5-7.5) Urine Specific [place] 1.022 (1.000-1.030) Urine Protein 2+ (NEG) Urine Glucose (UA) TRACE (NEG) Urine Ketones TRACE (NEG) Urine Occult Blood 2+ (NEG) Urine Nitrite NEG (NEG) Urine Bilirubin NEG (NEG) Urine Urobilinogen NEG (NEG) Urine Leukocyte Esterase TRACE (NEG) Urine WBC (Auto) 5-10 /hpf (0-5) Urine RBC (Auto) 5-10 /hpf (0-4) Urine Hyaline Casts (Auto) 1-5 /lpf (0-5) Urine Epithelial Cells (Auto) >30 /lpf (0-5) Urine Bacteria (Auto) NEG (NEG) Urine Renal Epithelial Cells /lpf (0-5) Urine Pathogenic Casts 5-10 GRANULAR CASTS /lpf (0) Bedside Lactic Acid Venous 1.61 mmol/L (0.90-1.70) Prothrombin Time 11.7 SECONDS (9.0-12.0) Prothromb Time International Ratio 1.1 (0.9-1.1) Activated Partial Thromboplast Time 34.1 SECONDS (21.0-31.0) Partial Thromboplastin Ratio 1.3 Total Bilirubin 0.5 mg/dl (0.2-1) Aspartate Amino Transf (AST/SGOT) 69 U/L (15-37) Alanine Aminotransferase (ALT/SGPT) 34 U/L (12-78) Alkaline Phosphatase 41 U/L (45-117) Total Creatine Kinase 670 U/L (26-192) Creatine Kinase MB 4.0 ng/ml (0.5-3.6) Creatine Kinase MB Ratio 0.6 (0-3.0) Total Protein 6.5 gm/dl (6.4-8.2) Albumin 2.8 gm/dl (3.4-5.0) Globulin 3.7 gm/dl (2.5-4.0) Albumin/Globulin Ratio 0.8 (0.9-2) Influenza Type A (RT-PCR) Neg for Influ A (NEG) Influenza Type A Antigen Neg for Influ A (NEG) Influenza Type B Antigen Neg for Influ B (NEG) Influenza Type B (RT-PCR) Neg for Influ B (NEG) Test 07/08/16 06:00 07/08/16 06:25 07/08/16 11:11 White Blood Count 5.59 K/uL (4.8-10.8) Red Blood Count 3.97 M/uL (4.2-5.4) Hemoglobin 11.7 g/dL (12.0-16.0) Hematocrit 34.5 % (37-47) Mean Corpuscular Volume 86.9 fL (80-100) Mean Corpuscular Hemoglobin 29.5 pg (25-34) Mean Corpuscular Hemoglobin Concent 33.9 g/dl (32-36) Platelet Count 102 K/uL (130-400) Mean Platelet Volume 10.3 fL (7.4-10.4) Neutrophils (%) (Auto) 76.8 % Lymphocytes (%) (Auto) 19.5 % Monocytes (%) (Auto) 3.0 % Eosinophils (%) (Auto) 0.0 % Basophils (%) (Auto) 0.2 % Neutrophils # (Auto) 4.29 K/uL (1.4-6.5) Lymphocytes # (Auto) 1.09 K/uL (1.2-3.4) Monocytes # (Auto) 0.17 K/uL (0.11-0.59) Eosinophils # (Auto) 0.00 K/uL (0-0.5) Basophils # (Auto) 0.01 K/uL (0-0.2) RDW Standard Deviation 43.7 fL (36.4-46.3) RDW Coefficient of Variation 13.6 % (11.5-14.5) Immature Granulocyte % (Auto) 0.5 % Immature Granulocyte # (Auto) 0.03 K/uL (0.00-0.02) Anion Gap 15.0 mmol/L (3-11) Est Creatinine Clear Calc Drug Dose 56.2 ml/min Estimated GFR () 74.3 Estimated GFR (Non- 64.1 BUN/Creatinine Ratio 23.3 (10-20) Calcium Level 7.6 mg/dl (8.5-10.1) Magnesium Level 2.1 mg/dl (1.8-2.4) Troponin I 0.092 ng/ml (0-0.045) Bedside Glucose 201 mg/dl (70-90) Date/Time Source Procedure Growth Status 07/08/16 06:00 Stool C.difficile Toxin B Gene (PCR) - Final No C. difficile toxin B gene detected Complete Imaging CT head- No acute intracranial abnormality. Impression 66 year old female with acute MS after illness Plan 1. MRI with and without brain- MS change -hx breast CA 2. folate, B12, TSH, lyme, RPR 3. TTE pending read 4. correct lytes and optimize DM control 5. stop ultram -will cause confusion 6. lung consolidation treating with -Levoquin daily 7. PT/OT for discharge needs 8. further recommendations once imaging is completed and resulted I have seen and discussed above patient with Dr Robert Avery, neurology Patient seen and evaluated in the presence of her daughter and idscussed with Tamera Curiel PAC she is flat and withdrawn but otherwise alert and appropriate with a nonfocal exam suspect a mild delerium but with history of breast ca we need an mri with and without contrast and today is demonstrating runs of svt likley atrial fib so the possibility of multiple small bifrontal or moutifocal emboli needs considered as well. will check eeg to be certain there is no low grade nonconvulsive seizure activity too Robert Avery MD
[2016-07-08] MEDS ORDERED: METOPROLOL TARTRATE 1 MG/ML VIAL ONE (16:00)
[2016-07-08] MEDS ORDERED: SODIUM CHLORIDE 0.9% 500ML 500 ML IV ONE (16:15)
[2016-07-08] MEDS ORDERED: METOPROLOL SUCC 25MG EXT REL TAB PO SCH (17:00)
[2016-07-08 17:14] LABS: THYROID STIMULATING HORMONE 0.159 uIu/ml (0.300-4.500)
--- NOTE | 2016-07-08 17:20 | ECHOCARDIOGRAM REPORT ---
*NOTICE TO RECEIVING DEMOCRAT AGENCY This information is strictly Confidential and protected under [place] law. [place] law prohibits you from making any further disclosure of this information unless further disclosure is expressly permitted by the written consent of the person to whom it pertains or is authorized by law. A general authorization for the release of medical or other information is not sufficient for this purpose. Hospital accepts no responsibility if the information is made available to any other person, INCLUDING THE PATIENT. Interpretation Summary * Name: MIGUEL A ALBARRAN Study Date: 07/08/2016 02:19 PM BP: 113/73 mmHg * Patient Location: C.2T\S\S234\S\1 HR: 69 * : 1950 (M/d/yyyy) Gender: Female Height: 62 in * Age: 66 yrs Ethnicity: CA Weight: 158 lb * Ordering Physician: Landon Roman * Referring Physician: Self, ReferreD * Performed By: Gregory Soto RCS * * Reason For Study: CHF * BSA: 1.7 m2 * -- Conclusions -- * The left ventricle is normal in size. * There is mild concentric left ventricular hypertrophy. * The left ventricular wall motion is normal. * Left ventricular systolic function is normal. * Ejection Fraction = 60-65%. * The aortic valve is trileaflet. * Mild valvular aortic stenosis. * There is trace tricuspid regurgitation. * Doppler findings do not suggest pulmonary hypertension. * Normal inferior vena cava diameter and respiratory variation suggests normal central venous pressure. Procedure Details * A complete two-dimensional transthoracic echocardiogram was performed (2D, M-mode, Doppler and color flow Doppler). Left Ventricle * The left ventricle is normal in size. * There is mild concentric left ventricular hypertrophy. * Ejection Fraction = 60-65%. * Left ventricular systolic function is normal. * The left ventricular wall motion is normal. Right Ventricle * The right ventricle is normal size. * The right ventricular systolic function is normal as assessed by tricuspid annular plane systolic excursion (TAPSE) (normal >1.5 cm). Atria * The left atrial size is normal. * Right atrial size is normal. * No ASD detected; PFO is not assessed. Mitral Valve * The mitral valve anatomy is normal. * There is no mitral valve stenosis. * Significant mitral regurgitation is absent. Tricuspid Valve * The tricuspid valve anatomy is normal. * There is no tricuspid stenosis. * There is trace tricuspid regurgitation. * Doppler findings do not suggest pulmonary hypertension. Aortic Valve * The aortic valve is trileaflet. * Mild valvular aortic stenosis. * There is no significant aortic regurgitation. Pulmonic Valve * The pulmonary valve is not well seen, but the Doppler examination is normal without significant regurgitation or stenosis. Great Vessels * The aortic root and proximal ascending aorta are normal sized. Pericardium/Pleural * There is no pericardial effusion. Great Vessels * Normal inferior vena cava diameter and respiratory variation suggests normal central venous pressure. MMode 2D Measurements and Calculations IVSd 1.2 cm IVSs 1.1 cm LVIDd 4.2 cm LVIDs 2.7 cm LVPWd 1.2 cm LVPWs 1.6 cm IVS/LVPW 1.0 FS 36.0 % EDV(Teich) 77.5 ml ESV(Teich) 26.4 ml EF(Teich) 66.0 % EDV(cubed) 72.8 ml ESV(cubed) 19.1 ml EF(cubed) 73.7 % % IVS thick -8.79 % % LVPW thick 36.6 % LV mass(C)d 176.5 grams LV mass(C)dI 102.0 grams/m\S\2 LV mass(C)s 116.1 grams LV mass(C)sI 67.1 grams/m\S\2 CO(Teich) 3.9 l/min CI(Teich) 2.2 l/min/m\S\2 SV(Teich) 51.1 ml SI(Teich) 29.6 ml/m\S\2 CO(cubed) 4.1 l/min CI(cubed) 2.4 l/min/m\S\2 SV(cubed) 53.7 ml SI(cubed) 31.1 ml/m\S\2 Ao root diam 2.7 cm Ao root area 5.7 cm\S\2 ACS 1.0 cm LA dimension 3.2 cm asc Aorta Diam 2.9 cm LA/Ao 1.2 LVOT diam 2.0 cm LVOT area 3.1 cm\S\2 LVAd ap4 18.7 cm\S\2 LVLd ap4 6.5 cm EDV(MOD-sp4) 44.0 ml LVAs ap4 9.6 cm\S\2 LVLs ap4 5.1 cm ESV(MOD-sp4) 16.0 ml EF(MOD-sp4) 63.6 % LVAd ap2 15.8 cm\S\2 LVLd ap2 6.6 cm EDV(MOD-sp2) 32.0 ml LVAs ap2 8.4 cm\S\2 LVLs ap2 5.7 cm ESV(MOD-sp2) 11.0 ml EF(MOD-sp2) 65.6 % CO(MOD-sp4) 2.1 l/min CI(MOD-sp4) 1.2 l/min/m\S\2 SV(MOD-sp4) 28.0 ml SI(MOD-sp4) 16.2 ml/m\S\2 CO(MOD-sp2) 1.6 l/min CI(MOD-sp2) 0.92 l/min/m\S\2 SV(MOD-sp2) 21.0 ml SI(MOD-sp2) 12.1 ml/m\S\2 Doppler Measurements and Calculations MV E max elham 86.4 cm/sec MV A max elham 66.7 cm/sec MV E/A 1.3 MV P1/2t max elham 104.4 cm/sec MV P1/2t 88.1 msec MVA(P1/2t) 2.5 cm\S\2 MV dec slope 346.8 cm/sec\S\2 MV dec time 0.26 sec Ao V2 max 232.6 cm/sec Ao max PG 21.8 mmHg Ao max PG (full) 15.6 mmHg Ao V2 mean 159.7 cm/sec Ao mean PG 11.8 mmHg Ao V2 VTI 45.7 cm HAZEL(V,A) 1.7 cm\S\2 HAZEL(V,D) 1.7 cm\S\2 LV V1 max PG 6.3 mmHg LV V1 max 125.4 cm/sec MR max elham 415.3 cm/sec MR max PG 69.0 mmHg SV(Ao) 262.3 ml SI(Ao) 151.7 ml/m\S\2 PA V2 max 122.5 cm/sec PA max PG 6.0 mmHg
[2016-07-08] MEDS ORDERED: POTASSIUM CHLORIDE 20 MEQ TABCR PO ONE (17:30)
[2016-07-08 19:14] LABS: LYME DISEASE AB IGG NEG (NEG); LYME DISEASE AB IGM NEG (NEG)
[2016-07-08] MEDS ORDERED: GADAVIST IV PRN (21:30)
--- NOTE | 2016-07-08 21:39 | DIAGNOSTIC IMAGING REPORT ---
MRI OF THE BRAIN COMBO CLINICAL HISTORY: Change in mental status. COMPARISON STUDY: CT of the brain dated 07/07/2016. TECHNIQUE: MRI of the brain was performed utilizing various T1 and T2-weighted sequences in the axial, sagittal, and coronal planes. Contrast-enhanced sequences were acquired following the administration of 7 cc of Gadavist. The Examination is modestly degraded by motion artifact. Several sequences were repeated. FINDINGS: Brain parenchyma: There is minimal subcortical and periventricular microangiopathic disease. There is no hemorrhage or mass effect. There is a faint 9 mm focus of restricted diffusion identified within the left splenomegaly of the corpus callosum. No additional foci of restricted diffusion are identified. There is a questionable 6 mm focus of enhancement versus artifact within the left cerebral peduncle seen on axial postcontrast image #7. This could not be corroborated on the coronal images. No additional foci of abnormal enhancement are suspected. Eli-white matter differentiation is preserved. No extra-axial fluid collection is seen. The cerebellar tonsils are normal in configuration. Ventricles, sulci, and cisterns: Normal in configuration. Pituitary and sella: Unremarkable. Intracranial vasculature: Normal flow voids are maintained at the skull base. Orbits: The bony orbits are grossly intact. Orbital contents are normal in appearance. Sinuses and mastoids: Clear. Calvarium: Unremarkable. Cervical cord: Partially visualized cervical spinal cord is normal in morphology and signal intensity. IMPRESSION: 1. Motion degraded examination. 2. There is a 9 mm focus of restricted diffusion identified in the left splenium of the corpus callosum. This likely represents a small acute to subacute lacunar infarct. Due to the atypical location a 6-8 week follow-up contrast-enhanced MRI of the brain is recommended for reassessment. 3. No additional foci of ischemia are suspected. There is no hemorrhage or mass effect. 4. There is a questionable 6 cm focus of enhancement in the left cerebral peduncle. This was only seen on one series, and this could represent artifact or possibly a small capillary telangiectasia. This can also be reassessed at follow-up.. Electronically signed by: Bubba Templeton M.D. 07/08/2016 9:38 PM Dictated Date/Time: 07/08/2016 9:28 PM
--- NOTE | 2016-07-08 22:00 | CARDIOLOGY CONSULTATION ---
DATE OF CONSULTATION: 07/08/2016 REFERRING PHYSICIAN: Dr. Roman. INDICATIONS: Atrial fibrillation with rapid ventricular response. HISTORY OF PRESENT ILLNESS: The patient is a 66-year-old female whose past medical history per review of records is notable for type 2 diabetes mellitus, hypertension with mild diastolic dysfunction, and hyperlipidemia, on therapy. The patient carries no prior history of cardiac disease, has been evaluated in the past due to echocardiogram noting type 2 diastolic dysfunction, though with the patient high level functional class I capacity historically. The patient presents this admission having had an acute febrile illness with gastroenteritis, possible pneumonia by initial assessments. The patient's complaints were associated with acute delirium and confusion which has since resolved. She is currently asymptomatic but this afternoon has lapsed into atrial fibrillation with rapid ventricular response, rates 180-190. The patient was unaware of the tachyarrhythmia, noted no chest pain or discomfort, noted no shortness of breath, was oxygenating well. Blood pressures were trending slightly to the low end of sides. Has been able to eat and drink this afternoon. Notes no cough, hoarseness, wheeze or hemoptysis, though has low-grade cough on forced expiration. Notes no melena, hematochezia, dysuria or hematuria. Weight per the patient has been stable. ALLERGIES: METFORMIN. MEDICATIONS PRIOR TO HOSPITALIZATION: Atorvastatin 40 mg p.o. daily, glimepiride 2 mg q.a.m., lisinopril 10 mg p.o. q.a.m., Actos 30 mg p.o. daily, ranitidine 150 mg p.o. b.i.d., Zofran p.r.n. as a new prescription. PAST SURGICAL HISTORY: Notable for past needle biopsy and subsequent right partial mastectomy and axillary dissection in 2007, D\T\C in 2002, remote tonsillectomy. FAMILY HISTORY: Per the patient is not notable for cardiac disease, though brother had a history of heart valve issues and father had a history of myocardial infarction per review of records. SOCIAL HISTORY: The patient is a nonsmoker, nondrinker. She has a physically active job, working at [employer]. REVIEW OF SYSTEMS: The patient notes no other acute findings or complaints with the review of systems otherwise negative. PHYSICAL EXAMINATION: VITAL SIGNS: Currently at the time of my examination, the patient had spontaneously converted to sinus rhythm. Heart rate was 80, blood pressure was 93/50. HEENT: Normocephalic, atraumatic. NECK: Thick. There is no distinct jugular venous distention. LUNGS: Reveal coarse airway sounds at the bases, left greater than right. CARDIOVASCULAR: Regular with normal S1 and S2. There is no audible murmur, gallop or rub. ABDOMEN: Soft, nontender. There is no palpable splenomegaly. There is no hepatojugular reflux. EXTREMITIES: Without cyanosis or clubbing. There is no peripheral edema. There is no palpable cord or Homans sign. NEUROLOGIC: The patient is awake, answering questions, has no recollection of her admission. LABORATORY DATA: On presentation, potassium was 3.1, this morning was 3.6; BUN is 22, creatinine is 0.9. White cell count is 5.5, hemoglobin is 11.7. Influenza A and B were negative. EKG on presentation revealed sinus rhythm with poor R-wave progression, but no acute ST-segment changes. EKG during atrial fibrillation revealed atrial fibrillation with rapid ventricular response, rate 184, nonspecific ST-segment changes, fusion beats with pattern consistent with a coarse atrial flutter. EKG currently is pending. IMPRESSION: A 66-year-old female admitted with acute gastroenteritis, possible pneumonia, and acute delirium and confusion, now returning toward baseline by description after antibiotics and IV fluids, though has been relatively hypotensive today. She lapsed into atrial flutter this afternoon with rapid ventricular response, now with spontaneous conversion to sinus rhythm. RECOMMENDATIONS: Hydration gently as planned. We will check EKG acutely, assess for QT prolongation. We will supplement potassium orally and begin low-dose beta estefany with Toprol-XL 12.5 mg twice per day. We will hold oral dose of lisinopril. Echocardiogram will be ordered to reassess valvular and cardiac structures. We have not anticoagulated the patient initially as ongoing neurologic assessment is in place. If the patient relapses into atrial fibrillation, would initiate anticoagulation.
[2016-07-08] MEDS ORDERED: LACTATED RINGER'S 1000ML 1,000 ML IV STA (22:22)
[2016-07-08] MEDS ORDERED: METOPROLOL TARTRATE 1 MG/ML VIAL IV STA (22:22)
[2016-07-08] MEDS ORDERED: HEPARIN IV LOW DOSE NO BOLUS STA (22:26)
--- NOTE | 2016-07-08 22:26 | Progress Note ---
Internal Med Progress Note Date of Service: Jul 08, 2016. Provider Documentation: Overnight developments : 1. tachyarrhythmia (rapid AF alt w/ SVT) minimally responsive to IV Digoxin, Lopressor, Cardizem boluses) px asymptomatic as per RN SBP on the lower end (100-120s) 2. MRI read, subacute stroke 3. intermittent fever spikes IV Amiodarone bolus/drip for rate control. Will hold maintenance BB for now given borderline BP to optimize cerebral perfusion in consideration of subacute stroke. anticoag initiated for thromboembolic prevention [Dr. 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 Will relay to AM provider. Vital Signs: Date Time Temp Pulse Resp B/P Pulse Ox O2 Delivery O2 Flow Rate FiO2 07/09/16 08:00 36.9 98 18 114/73 95 07/09/16 08:00 Room Air 07/09/16 06:35 96 07/09/16 06:32 128 07/09/16 05:44 161 112/64 07/09/16 05:14 136 07/09/16 04:15 165 07/09/16 04:01 Room Air 07/09/16 03:06 171 106/72 07/09/16 02:58 174 07/09/16 02:34 36.8 169 20 114/79 92 Room Air 07/09/16 01:45 166 22 126/85 96 Room Air 07/09/16 01:32 160 07/09/16 01:13 165 07/09/16 01:10 157 07/09/16 01:01 160 07/09/16 00:52 162 102/68 07/09/16 00:43 176 07/09/16 00:41 156 07/09/16 00:31 172 07/09/16 00:02 Room Air 07/09/16 00:00 37.5 174 18 105/63 94 Room Air 07/08/16 23:38 176 07/08/16 23:11 157 07/08/16 23:10 182 07/08/16 23:06 38.1 133 18 105/62 94 Room Air 07/08/16 22:55 37.1 85 18 120/76 92 Room Air 07/08/16 22:31 180 116/71 07/08/16 21:33 36.8 07/08/16 20:04 Room Air 07/08/16 19:00 38.3 82 18 105/64 93 Room Air 07/08/16 16:11 184 93/57 07/08/16 15:09 38.0 63 16 93/57 94 Room Air 07/08/16 14:59 Room Air 07/08/16 11:35 Room Air 07/08/16 11:31 36.7 69 18 113/73 93 Room Air Lab Results: Results Past 24 Hours Test 07/08/16 11:11 07/08/16 15:50 07/08/16 16:08 07/08/16 20:02 Range/Units Bedside Glucose 201 183 145 70-90 mg/dl Troponin I 0.068 0-0.045 ng/ml Vitamin B12 Level 1576 211-911 pg/mL Folate > 24.00 >5.38 ng/mL Thyroid Stimulating Hormone (TSH) 0.159 0.300-4.500 uIu/ml Total Triiodothyronine 0.38 0.60-1.81 ng/ml Rapid Plasma Reagin NONREACTIVE NONREACT Lyme Disease IgG Antibody NEG NEG Lyme Disease IgM Antibody NEG NEG Test 07/08/16 22:26 07/09/16 06:20 07/09/16 06:26 Range/Units Sodium Level 143 140 136-145 mmol/L Potassium Level 4.0 3.9 3.5-5.1 mmol/L Chloride Level 112 111 98-107 mmol/L Carbon Dioxide Level 18 18 21-32 mmol/L Anion Gap 13.0 11.0 3-11 mmol/L Blood Urea Nitrogen 19 16 7-18 mg/dl Creatinine 0.84 0.87 0.60-1.20 mg/dl Est Creatinine Clear Calc Drug Dose 62.9 60.7 ml/min Estimated GFR () 85.1 81.6 Estimated GFR (Non- 73.4 70.4 BUN/Creatinine Ratio 22.5 18.6 10-20 Random Glucose 139 164 70-99 mg/dl Calcium Level 7.3 7.7 8.5-10.1 mg/dl Magnesium Level 2.0 2.0 1.8-2.4 mg/dl Troponin I 0.044 0-0.045 ng/ml Albumin 2.3 3.4-5.0 gm/dl Free Thyroxine 1.51 0.80-1.60 ng/dl White Blood Count 7.47 4.8-10.8 K/uL Red Blood Count 4.41 4.2-5.4 M/uL Hemoglobin 13.0 12.0-16.0 g/dL Hematocrit 37.9 37-47 % Mean Corpuscular Volume 85.9 80-100 fL Mean Corpuscular Hemoglobin 29.5 25-34 pg Mean Corpuscular Hemoglobin Concent 34.3 32-36 g/dl Platelet Count 102 130-400 K/uL Mean Platelet Volume 10.5 7.4-10.4 fL Neutrophils (%) (Auto) 77.7 % Lymphocytes (%) (Auto) 18.3 % Monocytes (%) (Auto) 2.9 % Eosinophils (%) (Auto) 0.0 % Basophils (%) (Auto) 0.7 % Neutrophils # (Auto) 5.80 1.4-6.5 K/uL Lymphocytes # (Auto) 1.37 1.2-3.4 K/uL Monocytes # (Auto) 0.22 0.11-0.59 K/uL Eosinophils # (Auto) 0.00 0-0.5 K/uL Basophils # (Auto) 0.05 0-0.2 K/uL RDW Standard Deviation 43.9 36.4-46.3 fL RDW Coefficient of Variation 14.0 11.5-14.5 % Immature Granulocyte % (Auto) 0.4 % Immature Granulocyte # (Auto) 0.03 0.00-0.02 K/uL Echinocytes 1+ Bedside Glucose 161 70-90 mg/dl
[2016-07-08 23:13] LABS: BUN/CREATININE RATIO 22.5 (10-20); CALCIUM 7.3 mg/dl (8.5-10.1); CREATININE 0.84 mg/dl (0.60-1.20)
[2016-07-08] MEDS ORDERED: PIPERACILLIN/TAZOBACTAM 4.5 GM/100ML D5W IV STA (23:14)
[2016-07-08] MEDS ORDERED: DIGOXIN IV 250 MCG in SYRINGE 9 ML IV ONE (23:30)
[2016-07-08] MEDS ORDERED: PIPERACILL/TAZOBAC IV 4.5 GM in DEXTROSE 5% 100ML IV ONE (23:30)
[2016-07-08] MEDS ORDERED: PIPERACILL/TAZOBAC CONSULT ACTIVE PRN (23:45)
[2016-07-09] VITALS (19 sets, daily range): BP systolic 94–126; BP diastolic 52–85; PULSE 96–176; TEMP 36.5–37.5; O2SAT 92–97
[2016-07-09 00:15] LABS: RAPID PLASMA REAGIN NONREACTIVE (NONREACT)
[2016-07-09] MEDS ORDERED: DIGOXIN IV 250 MCG in SYRINGE 9 ML IV ONE ×3 (00:15→02:45)
[2016-07-09] MEDS ORDERED: DABIGATRAN ELEXILATE 75 MG CAP PO ONE (00:25)
[2016-07-09] MEDS ORDERED: SODIUM CHLORIDE 0.45% 1000ML 1,000 ML IV ONE ×2 (00:30)
[2016-07-09] MEDS ORDERED: DILTIAZEM HCL 5 MG/ML 5 ML VIAL IV STA ×2 (02:02→02:38)
[2016-07-09] MEDS ORDERED: DOXYCYCLINE IV 100 MG in DEXTROSE 5% 100ML 100 ML IV STA (02:03)
[2016-07-09] MEDS ORDERED: AMIODARONE IV BOLUS / DRIP IV STA (03:08)
[2016-07-09] MEDS ORDERED: AMIODARONE / D5W 100 ML IV SCH (03:30)
[2016-07-09] MEDS ORDERED: AMIODARONE / D5W 200 ML IV SCH (03:45)
[2016-07-09] MEDS ORDERED: METOPROLOL TARTRATE 1 MG/ML VIAL IV STA (05:29)
[2016-07-09] MEDS: PIPERACILL/TAZOBAC IV 3.375 GM in DEXTROSE 5% 100ML IV SCH ×3 (06:29→21:15)
[2016-07-09 06:37] LABS: HEMATOCRIT 37.9 % (37-47); MEAN CELL VOLUME 85.9 fL (80-100); MEAN CORPUSCULAR HEMOGLOBIN 29.5 pg (25-34); MEAN CORPUSCULAR HGB CONC 34.3 g/dl (32-36); MEAN PLATELET VOLUME 10.5 fL (7.4-10.4); PLATELET COUNT 102 K/uL (130-400); RED BLOOD COUNT 4.41 M/uL (4.2-5.4); WHITE BLOOD COUNT 7.47 K/uL (4.8-10.8)
[2016-07-09] MEDS: INSULIN ASPART 100 UNITS/ML 3 ML PEN SC SCH ×4 (07:00→21:16)
[2016-07-09 07:09] LABS: BUN/CREATININE RATIO 18.6 (10-20); CALCIUM 7.7 mg/dl (8.5-10.1); CREATININE 0.87 mg/dl (0.60-1.20); POTASSIUM 3.9 mmol/L (3.5-5.1)
[2016-07-09] MEDS: AMIODARONE / D5W 200 ML IV SCH ×2 (07:12→20:05)
[2016-07-09 07:13] LABS: BASO % 0.7 %; BASO ABS # 0.05 K/uL (0-0.2); COMPLETE YES; ECHINOCYTES 1+; IG% 0.4 %; LYMPH % 18.3 %; LYMPH ABS # 1.37 K/uL (1.2-3.4); MONO % 2.9 %; NEUT % 77.7 %
--- NOTE | 2016-07-09 08:45 | DIAGNOSTIC IMAGING REPORT ---
CT HEAD WITHOUT CONTRAST (CT) CLINICAL HISTORY: Intracerebral hemorrhage. Follow-up study. MENTAL STATUS CHANGE COMPARISON STUDY: 07/07/2016, MRI the brain dated 07/08/2016 TECHNIQUE: Axial CT of the brain is performed from the vertex to the skull base. IV contrast was not administered for this examination. CT DOSE: 537.48 mGy.cm FINDINGS: No intra or extra-axial mass lesions are visualized. There is no CT evidence of acute cortical infarction. There is no evidence of midline shift. There is no acute hemorrhage. No calvarial fractures are visualized. There is a stable 7 mm calcification within the right posterior fossa just inferior to the right middle cerebellar peduncle. There is no evidence of pathologic ventricular dilatation. There is no evidence of acute sinusitis IMPRESSION: No acute intracranial findings Electronically signed by: Paul Toscano M.D. 07/09/2016 8:43 AM Dictated Date/Time: 07/09/2016 8:41 AM
--- NOTE | 2016-07-09 08:48 | DIAGNOSTIC IMAGING REPORT ---
BILATERAL CAROTID DOPPLER STUDY HISTORY: stroke COMPARISON: None. TECHNIQUE: Real-time, grayscale, and color Doppler sonography of the carotid arteries was performed. Imaging reviewed in the transverse and longitudinal planes. All measurements were calculated based on NASCET criteria. FINDINGS: Antegrade flow is seen in the bilateral vertebral arteries. The peak systolic velocity within the right ICA is 60 cm/s. The right systolic ratio is 0.8. The peak systolic velocity within the left ICA is 61 cm/s. The left systolic ratio is 0.9. IMPRESSION: No hemodynamically significant stenosis seen within the carotid arteries. Electronically signed by: Misha Gibson M.D. 07/09/2016 8:47 AM Dictated Date/Time: 07/09/2016 8:45 AM
[2016-07-09] MEDS: DABIGATRAN ELEXILATE 75 MG CAP PO SCH ×2 (08:49→20:06)
[2016-07-09] MEDS: RANITIDINE HCL 150 MG TAB PO SCH ×2 (08:50→20:05)
[2016-07-09] MEDS ORDERED: LEVOFLOXACIN 750 MG TAB PO SCH (11:00)
[2016-07-09] MEDS ORDERED: METOPROLOL TARTRATE 1 MG/ML VIAL - CCU EMERGENCY DRUG ONE (11:04)
[2016-07-09] MEDS ORDERED: POTASSIUM CHLORIDE 10 MEQ TABCR PO STA (11:20)
[2016-07-09 11:39] LABS: CHOLESTEROL/HDL RATIO 4.7
--- NOTE | 2016-07-09 13:17 | ELECTROENCEPHALOGRAPH REPORT ---
CLINICAL DIAGNOSIS: Encephalopathy of uncertain origin with paroxysmal atrial fibrillation and single presumptive embolic stroke left frontal region. EEG DIAGNOSIS: Essentially normal during wakefulness and drowsiness and light sleep. DESCRIPTION OF TRACING: EEG was done at the bedside without any stimulation. A simultaneous video analysis of patient movement and behavior was obtained. Few or no muscle movement artifacts are recorded. During the initial parts of the recording, the patient is awake and the EEG shows evidence for background rhythm in the alpha range at 9-10 Hz of maximum frequency and 30 microvolts of maximum amplitude. This is maximum posterior head regions and is bilaterally symmetrical. Polymorphic mid frequency in modest voltage theta activity is seen over all head regions without clear focal or regional predominance. Anterior head region maximum bilaterally symmetrical low voltage fast activity in the beta range is present. As tracing progresses the patient's EEG begins to slow particularly in the frontal regions where theta delta activity emerges into higher amplitude delta and is preceded by some episodes of what could be constituted as frontal intermittent mono rhythmic delta. Later the background alpha rhythm slips into the mid theta range and the amplitude and frequency of the slow wave activity rises and decreases respectively. This corresponds to a transition between drowsiness and light sleep but fully developed sleep spindles and K complexes never emerge. At no time during the waking, drowsy or early sleep recordings is there evidence for potentially epileptogenic activity. In summary, this EEG reveals normal patterns during brief initial wakefulness followed by what appears to be a normal drowsy and light sleep patterns without any focal or generalized abnormalities and without any potential epileptogenic activity.
--- NOTE | 2016-07-09 13:32 | DIAGNOSTIC IMAGING REPORT ---
CHEST ONE VIEW PORTABLE CLINICAL HISTORY: Sepsis, pneumonia. COMPARISON STUDY: 07/07/2016 FINDINGS: There is extensive left mid and lower lung zone airspace consolidation, suspicious for pneumonia. There is a probable left pleural effusion. Films are recommended in follow-up.[ IMPRESSION: Progressive left mid and lower lung zone consolidation suspicious for pneumonia. Films subsequent to treatment are recommended in follow-up Electronically signed by: Paul Toscano M.D. 07/09/2016 1:31 PM Dictated Date/Time: 07/09/2016 1:30 PM
[2016-07-09] MEDS ORDERED: ADENOSINE IV SOLN 3 MG/ML 2 ML VIAL ONE ×2 (13:45→13:48)
[2016-07-09] MEDS ORDERED: NURSING VERBAL MED ORDER ONE ×2 (13:59→22:45)
[2016-07-09] MEDS: DOXYCYCLINE IV 100 MG in DEXTROSE 5% 100ML 100 ML IV SCH (14:02)
[2016-07-09] MEDS ORDERED: METOPROLOL TARTRATE 25 MG TAB PO ONE (14:16)
--- NOTE | 2016-07-09 14:44 | CARDIOLOGY PROGRESS NOTE ---
DATE: 07/09/2016 DATE: 07/09/2016. The patient seen and examined. Chart, medications, telemetry reviewed. SUBJECTIVE: Notes evening prior noted issues as described. MRI reflective of possible subacute infarct of the brain. Telemetry reveals once again paroxysmal Afib flutter with rapid ventricular response, was treated with multiple therapies overnight including full 1 mg of digoxin load, doses of IV diltiazem and IV metoprolol with minimal slowing of heart rate. She was begun on amiodarone drip with spontaneous conversion to sinus bradycardia this morning, but since approximately 10:30 this morning lapsed back into atrial fibrillation flutter with very rapid ventricular response. She is asymptomatic, is not aware of any tachypalpitations. Notes no chest pain, does have a productive cough. Notes no dizziness or lightheadedness. OBJECTIVE: VITAL SIGNS: Heart rate currently is 170, blood pressure is 114/79. NECK: Thin. There is no jugular venous distention. There are simons waves present. LUNGS: Reveal coarse rhonchi, bibasilar. CARDIOVASCULAR EXAMINATION: Irregular, irregular and rapid. ABDOMEN: Soft, nontender. EXTREMITIES: Without cyanosis or clubbing. There is no peripheral edema. LABORATORY DATA: White cell count 7.4, hemoglobin is 13.0. Sodium is 140, potassium is 3.9, chloride is 111, BUN 16, creatinine 0.87. Chest x-ray reveals worsening pneumonia, left greater than right. Carotid ultrasound revealed no hemodynamically significant stenosis. IMPRESSION: A 66-year-old female with paroxysmal Afib flutter as complication of acute pneumonia, possible superimposed embolic stroke versus acute encephalopathy secondary to illness. The patient is appropriately anticoagulated now with Pradaxa given findings as described. Heart rate continues to be elevated, has not been responsive to multiple medical therapies including current IV amiodarone load ongoing. PLAN: The patient was given a trial attempt of adenosine 6 mg. This once again documented atrial fib flutter underneath rhythm but did not convert. Will continue IV amiodarone adding oral adding oral metoprolol 25 mg t.i.d. to aid in heart rate slowing. She as noted is relatively asymptomatic. We will continue to treat underlying pulmonary issues. Will follow closely in hospital.
--- NOTE | 2016-07-09 16:06 | Neurology Progress Notes ---
Neurology Progress Note Date of Service Jul 09, 2016. Fermin Leyva is a 66 year old female with a PMH GERD, DM2, HTN, diastolic dysfunction and breast CA who presents to the ER with confusion. She was seen in the ED for nausea and diarrhea the day prior and was given IV fluids. She was diagnosed with viral gastroenteritis and sent home with a prescription for Zofran. Her daughter is in the room but she lives in [place] but she states she called her and she just didn't sound right so she called a local relative to check on her. Diarrhea had been going on for 3 days. She had no appetite but no nausea, vomiting, or abdominal pain currently. She denies fever and chills.the chest xray showed consolidation in the left base. She had a low grade temp of 37.6 She states she ate some of her lunch today but wasn't very hungry. denies CP, SOB, abdominal pain, weakness, numbness tingling, vision change swallowing issues, headache. Objective Date Time Temp Pulse Resp B/P Pulse Ox O2 Delivery O2 Flow Rate FiO2 07/09/16 12:00 Room Air 07/09/16 11:30 36.6 122 19 96/64 97 Room Air 07/09/16 08:00 36.9 98 18 114/73 95 07/09/16 08:00 Room Air 07/09/16 06:35 96 07/09/16 06:32 128 07/09/16 05:44 161 112/64 07/09/16 05:14 136 07/09/16 04:15 165 07/09/16 04:01 Room Air 07/09/16 03:06 171 106/72 07/09/16 02:58 174 07/09/16 02:34 36.8 169 20 114/79 92 Room Air 07/09/16 01:45 166 22 126/85 96 Room Air 07/09/16 01:32 160 07/09/16 01:13 165 07/09/16 01:10 157 07/09/16 01:01 160 07/09/16 00:52 162 102/68 07/09/16 00:43 176 07/09/16 00:41 156 07/09/16 00:31 172 07/09/16 00:02 Room Air 07/09/16 00:00 37.5 174 18 105/63 94 Room Air 07/08/16 23:38 176 07/08/16 23:11 157 07/08/16 23:10 182 07/08/16 23:06 38.1 133 18 105/62 94 Room Air 07/08/16 22:55 37.1 85 18 120/76 92 Room Air 07/08/16 22:31 180 116/71 07/08/16 21:33 36.8 07/08/16 20:04 Room Air 07/08/16 19:00 38.3 82 18 105/64 93 Room Air 07/08/16 16:11 184 93/57 Last 24 Hours Test 07/08/16 15:50 07/08/16 16:08 07/08/16 20:02 07/08/16 22:26 Bedside Glucose 183 mg/dl 145 mg/dl Troponin I 0.068 ng/ml 0.044 ng/ml Vitamin B12 Level 1576 pg/mL Folate > 24.00 ng/mL Thyroid Stimulating Hormone (TSH) 0.159 uIu/ml Total Triiodothyronine 0.38 ng/ml Rapid Plasma Reagin NONREACTIVE Lyme Disease IgG Antibody NEG Lyme Disease IgM Antibody NEG Sodium Level 143 mmol/L Potassium Level 4.0 mmol/L Chloride Level 112 mmol/L Carbon Dioxide Level 18 mmol/L Anion Gap 13.0 mmol/L Blood Urea Nitrogen 19 mg/dl Creatinine 0.84 mg/dl Est Creatinine Clear Calc Drug Dose 62.9 ml/min Estimated GFR () 85.1 Estimated GFR (Non- 73.4 BUN/Creatinine Ratio 22.5 Random Glucose 139 mg/dl Calcium Level 7.3 mg/dl Magnesium Level 2.0 mg/dl Albumin 2.3 gm/dl Free Thyroxine 1.51 ng/dl Test 07/09/16 06:20 07/09/16 06:26 07/09/16 11:06 White Blood Count 7.47 K/uL Red Blood Count 4.41 M/uL Hemoglobin 13.0 g/dL Hematocrit 37.9 % Mean Corpuscular Volume 85.9 fL Mean Corpuscular Hemoglobin 29.5 pg Mean Corpuscular Hemoglobin Concent 34.3 g/dl Platelet Count 102 K/uL Mean Platelet Volume 10.5 fL Neutrophils (%) (Auto) 77.7 % Lymphocytes (%) (Auto) 18.3 % Monocytes (%) (Auto) 2.9 % Eosinophils (%) (Auto) 0.0 % Basophils (%) (Auto) 0.7 % Neutrophils # (Auto) 5.80 K/uL Lymphocytes # (Auto) 1.37 K/uL Monocytes # (Auto) 0.22 K/uL Eosinophils # (Auto) 0.00 K/uL Basophils # (Auto) 0.05 K/uL RDW Standard Deviation 43.9 fL RDW Coefficient of Variation 14.0 % Immature Granulocyte % (Auto) 0.4 % Immature Granulocyte # (Auto) 0.03 K/uL Echinocytes 1+ Sodium Level 140 mmol/L Potassium Level 3.9 mmol/L Chloride Level 111 mmol/L Carbon Dioxide Level 18 mmol/L Anion Gap 11.0 mmol/L Blood Urea Nitrogen 16 mg/dl Creatinine 0.87 mg/dl Est Creatinine Clear Calc Drug Dose 60.7 ml/min Estimated GFR () 81.6 Estimated GFR (Non- 70.4 BUN/Creatinine Ratio 18.6 Random Glucose 164 mg/dl Calcium Level 7.7 mg/dl Magnesium Level 2.0 mg/dl Triglycerides Level 192 mg/dl Cholesterol Level 117 mg/dl HDL Cholesterol 25 mg/dl LDL Cholesterol, Calculated 54 mg/dl VLDL Cholesterol, Calculated 38 mg/dl Cholesterol/HDL Ratio 4.7 Bedside Glucose 161 mg/dl 211 mg/dl Imaging: carotid doppler- No hemodynamically significant stenosis seen within the carotid arteries. MRI with and without contrast- . Motion degraded examination. There is a 9 mm focus of restricted diffusion identified in the left splenium of the corpus callosum. This likely represents a small acute to subacute lacunar infarct. Due to the atypical location a 6-8 week follow-up contrast-enhanced MRI of the brain is recommended for reassessment. No additional foci of ischemia are suspected. There is no hemorrhage or mass effect. . There is a questionable 6 cm focus of enhancement in the left cerebral peduncle. This was only seen on one series, and this could represent artifact or possibly a small capillary telangiectasia. This can also be reassessed at follow-up. TTE- The left ventricle is normal in size. * There is mild concentric left ventricular hypertrophy. * The left ventricular wall motion is normal. * Left ventricular systolic function is normal. * Ejection Fraction = 60-65%. * The aortic valve is trileaflet. * Mild valvular aortic stenosis. * There is trace tricuspid regurgitation. * Doppler findings do not suggest pulmonary hypertension. * Normal inferior vena cava diameter and respiratory variation suggests normal central venous pressure. No ASD Exam: Physical Exam: Constitutional: appearance nourished, healthy and obese Ears, Nose, Mouth and Throat: mucous membranes moist, no injection and skin normal, eyes normal Cardiovascular: normal S-1 and S-2 and regular rate and rhythm Respiratory: clear to auscultation (CTA) and no rales, rhonchi or wheeze Musculoskeletal: no peripheral edema and good distal pulses Skin: no stigmata of neurocutaneous disease noted and normal and intact Eyes: extraocular muscles intact (EOMI) and pupils equal, round and reactive to light (PERRL) NEUROLOGIC EXAMINATION: Mental status: Alert and interactive oriented to hospital, 2017 Oriented to person Speech fluent with no evidence of aphasia Cranial Nerves facial symmetry Reflexes: Deep tendon reflexes were symmetrical and graded 2/5. Plantar responses were flexor. Sensory: light touch and cool touch Coordination: finger to nose without bi pass, no tremor Gait/Stance: lying in bed Motor: Negative for pronator drift of out stretched arms with eyes closed. 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 ACHS SC 07/08/16 07:00 08/07/16 06:59 07/09/16 12:40 1 UNITS Glucose (Glucose 40% Gel) 15-30 GRAMS 15 GRAMS... UD PRN PO 07/07/16 22:15 08/06/16 22:14 Glucose (Glucose Chew Tab) 4-8 Tablets 4 Tabl... UD PRN PO 07/07/16 22:15 08/06/16 22:14 Dextrose (Dextrose 50% 50ML Syringe) 25-50ML OF 50% DW IV FOR... UD PRN IV 3/5/17 22:15 08/06/16 22:14 Glucagon (Glucagon Inj) 1 mg UD PRN SQ 07/07/16 22:15 08/06/16 22:14 Albuterol/ Ipratropium (Duoneb) 3 ml Q2H PRN INH 07/07/16 22:15 08/06/16 22:14 Lisinopril (Zestril Tab) 10 mg DAILY PO 07/08/16 09:00 08/07/16 08:59 Future Hold 07/08/16 07:42 10 MG Ranitidine HCl (zANTac TAB) 150 mg BID PO 07/08/16 09:00 08/07/16 08:59 07/09/16 08:50 150 MG Calcium Carbonate (Tums Chew Tab) 500 mg Q6H PRN PO 07/08/16 00:45 08/07/16 00:44 07/08/16 19:42 500 MG Metoprolol Succinate (Toprol Xl Tab) 12.5 mg BID17 PO 07/08/16 17:00 08/07/16 16:59 Future Hold 07/08/16 17:05 12.5 MG Gadobutrol (Gadavist) 7 mmol UD PRN IV 07/08/16 21:30 07/12/16 21:29 Piperacillin Sod/ Tazobactam Sod 1 ea 1 ea UD PRN N/A 07/08/16 23:45 08/07/16 23:44 Piperacillin Sod/ Tazobactam Sod/ Dextrose (Zosyn Iv/D5 100ml) 115 ml @ 28.75 mls/ hr Q8H IV 07/09/16 06:00 07/16/16 05:59 07/09/16 14:05 28.75 MLS/HR Dabigatran 150 mg 150 mg BID PO 07/09/16 09:00 08/08/16 08:59 07/09/16 08:49 150 MG Doxycycline Hyclate 100 mg/ Dextrose 110 ml @ 50 mls/hr Q12H IV 07/09/16 14:00 07/16/16 13:59 07/09/16 14:02 50 MLS/HR Amiodarone HCL/ Dextrose (Nexterone / D5w) 200 ml @ 16.7 mls/hr [id number] IV 07/09/16 09:45 08/08/16 09:44 07/09/16 07:12 16.7 MLS/HR Metoprolol Tartrate (Lopressor Tab) 25 mg TID PO 07/09/16 21:00 08/08/16 20:59 Impression 66 year old female with acute MS after illness Plan 1. MRI with and without brain- MS change -hx breast CA- no intracranial findings ( acute embolic cva left deep hemisphere ) may wellbeclinically silent but indicates need for anticoagulation in light of atrisl fibrillation 2. folate, B12, lyme, RPR WNL TSH low but T3 also low may be post viral 3. TTE resulted 4. correct lytes and optimize DM control 5. stop ultram -will cause confusion 6. lung consolidation treating with -Levoquin daily 7. PT/OT for discharge needs 8. further recommendations once imaging is completed and resulted 9. cardiology- treating a flutter 10. will be available for input as needed I have seen and discussed above patient with Dr Robert Avery, neurology Seen and discussed with Tamera Grey Patient flat affect but alert and oriented RACHELLE did show a small likely embolic event as noted above which may well be asymptomatic but in light of atrial fibrillation and absence of valvular cause will require novel anticoagulant and pradax started Patient also mildy thrombocytopenic so heparin was held will follow up with you but for now little more to add to management neuro [place] Robert avery MD
--- NOTE | 2016-07-09 18:44 | Progress Note ---
Subjective Date of Service: Jul 09, 2016. Subjective Pt evaluation today including: conversation w/ patient, conversation w/ family , physical exam, lab review, review of studies, conversation w/ art consultant, review of inpatient medication list Saw/examined the patient in room 234 She is reserved today +facial droop on the left side no motor dysfunction states she has no issues to note and is eager to go home possible mild cognitive dysfunction? Problem List Medical Problems: (1) Dehydration Status: Acute (2) Hypokalemia Status: Acute (3) Vomiting and diarrhea Status: Acute Review of Systems Constitutional: No chills, No fever, No weakness Respiratory: No cough, No dyspnea at rest, No dyspnea on exertion, No hemoptysis, No shortness of breath, No sputum, No wheezing Cardiac: No chest pain, No edema, No palpitations Neurologic: No balance problems, No memory loss, No numbness/tingling, No paralysis, No vertigo, No weakness Medications Current Inpatient Medications Medications (Trade) Dose Ordered Sig/Dayne Route Start Time Stop Time Status Last Admin Dose Admin Acetaminophen (Tylenol Tab) 650 mg Q4H PRN PO 07/07/16 22:15 08/06/16 22:14 07/08/16 23:08 650 MG Nitroglycerin (Nitrostat Tab) 0.4 mg UD PRN SL 07/07/16 22:15 08/06/16 22:14 Insulin Aspart (novoLOG ASPART) SLIDING SCALE If C... ACHS SC 07/08/16 07:00 08/07/16 06:59 07/09/16 17:11 1 UNITS Glucose (Glucose 40% Gel) 15-30 GRAMS 15 GRAMS... UD PRN PO 07/07/16 22:15 08/06/16 22:14 Glucose (Glucose Chew Tab) 4-8 Tablets 4 Tabl... UD PRN PO 07/07/16 22:15 08/06/16 22:14 Dextrose (Dextrose 50% 50ML Syringe) 25-50ML OF 50% DW IV FOR... UD PRN IV 07/07/16 22:15 08/06/16 22:14 Glucagon (Glucagon Inj) 1 mg UD PRN SQ 07/07/16 22:15 08/06/16 22:14 Albuterol/ Ipratropium (Duoneb) 3 ml Q2H PRN INH 07/07/16 22:15 08/06/16 22:14 Lisinopril (Zestril Tab) 10 mg DAILY PO 07/08/16 09:00 08/07/16 08:59 Future Hold 07/08/16 07:42 10 MG Ranitidine HCl (zANTac TAB) 150 mg BID PO 07/08/16 09:00 08/07/16 08:59 07/09/16 08:50 150 MG Calcium Carbonate (Tums Chew Tab) 500 mg Q6H PRN PO 07/08/16 00:45 08/07/16 00:44 07/08/16 19:42 500 MG Metoprolol Succinate (Toprol Xl Tab) 12.5 mg BID17 PO 07/08/16 17:00 08/07/16 16:59 Future Hold 07/08/16 17:05 12.5 MG Gadobutrol (Gadavist) 7 mmol UD PRN IV 07/08/16 21:30 07/12/16 21:29 Piperacillin Sod/ Tazobactam Sod 1 ea 1 ea UD PRN N/A 07/08/16 23:45 08/07/16 23:44 Piperacillin Sod/ Tazobactam Sod/ Dextrose (Zosyn Iv/D5 100ml) 115 ml @ 28.75 mls/ hr Q8H IV 07/09/16 06:00 07/16/16 05:59 07/09/16 14:05 28.75 MLS/HR Dabigatran 150 mg 150 mg BID PO 07/09/16 09:00 08/08/16 08:59 07/09/16 08:49 150 MG Doxycycline Hyclate 100 mg/ Dextrose 110 ml @ 50 mls/hr Q12H IV 07/09/16 14:00 07/16/16 13:59 07/09/16 14:02 50 MLS/HR Amiodarone HCL/ Dextrose (Nexterone / D5w) 200 ml @ 16.7 mls/hr [id number] IV 07/09/16 09:45 08/08/16 09:44 07/09/16 07:12 16.7 MLS/HR Metoprolol Tartrate (Lopressor Tab) 25 mg TID PO 07/09/16 21:00 08/08/16 20:59 Objective Vital Signs Date Time Temp Pulse Resp B/P Pulse Ox O2 Delivery O2 Flow Rate FiO2 07/09/16 16:00 Nasal Cannula 07/09/16 12:00 Room Air 07/09/16 11:30 36.6 122 19 96/64 97 Room Air 07/09/16 08:00 36.9 98 18 114/73 95 07/09/16 08:00 Room Air 07/09/16 06:35 96 07/09/16 06:32 128 07/09/16 05:44 161 112/64 07/09/16 05:14 136 07/09/16 04:15 165 07/09/16 04:01 Room Air 07/09/16 03:06 171 106/72 07/09/16 02:58 174 07/09/16 02:34 36.8 169 20 114/79 92 Room Air 07/09/16 01:45 166 22 126/85 96 Room Air 07/09/16 01:32 160 07/09/16 01:13 165 07/09/16 01:10 157 07/09/16 01:01 160 07/09/16 00:52 162 102/68 07/09/16 00:43 176 07/09/16 00:41 156 07/09/16 00:31 172 07/09/16 00:02 Room Air 07/09/16 00:00 37.5 174 18 105/63 94 Room Air 07/08/16 23:38 176 07/08/16 23:11 157 07/08/16 23:10 182 07/08/16 23:06 38.1 133 18 105/62 94 Room Air 07/08/16 22:55 37.1 85 18 120/76 92 Room Air 07/08/16 22:31 180 116/71 07/08/16 21:33 36.8 07/08/16 20:04 Room Air 07/08/16 19:00 38.3 82 18 105/64 93 Room Air Physical Exam General Appearance: no apparent distress Respiratory/Chest: chest non-tender, lungs clear, normal breath sounds, no respiratory distress, no accessory muscle use Cardiovascular: no edema, + tachycardia, + irregularly irregular Extremities: non-tender, normal inspection, no pedal edema Neurologic/Psychiatric: alert, + facial droop (mild right sided droop), + pertinent finding (no motor weakness) Skin: normal color Laboratory Results Last 24 Hours Test 07/08/16 20:02 07/08/16 22:26 07/09/16 06:20 07/09/16 06:26 Bedside Glucose 145 mg/dl 161 mg/dl Sodium Level 143 mmol/L 140 mmol/L Potassium Level 4.0 mmol/L 3.9 mmol/L Chloride Level 112 mmol/L 111 mmol/L Carbon Dioxide Level 18 mmol/L 18 mmol/L Anion Gap 13.0 mmol/L 11.0 mmol/L Blood Urea Nitrogen 19 mg/dl 16 mg/dl Creatinine 0.84 mg/dl 0.87 mg/dl Est Creatinine Clear Calc Drug Dose 62.9 ml/min 60.7 ml/min Estimated GFR () 85.1 81.6 Estimated GFR (Non- 73.4 70.4 BUN/Creatinine Ratio 22.5 18.6 Random Glucose 139 mg/dl 164 mg/dl Calcium Level 7.3 mg/dl 7.7 mg/dl Magnesium Level 2.0 mg/dl 2.0 mg/dl Troponin I 0.044 ng/ml Albumin 2.3 gm/dl Free Thyroxine 1.51 ng/dl White Blood Count 7.47 K/uL Red Blood Count 4.41 M/uL Hemoglobin 13.0 g/dL Hematocrit 37.9 % Mean Corpuscular Volume 85.9 fL Mean Corpuscular Hemoglobin 29.5 pg Mean Corpuscular Hemoglobin Concent 34.3 g/dl Platelet Count 102 K/uL Mean Platelet Volume 10.5 fL Neutrophils (%) (Auto) 77.7 % Lymphocytes (%) (Auto) 18.3 % Monocytes (%) (Auto) 2.9 % Eosinophils (%) (Auto) 0.0 % Basophils (%) (Auto) 0.7 % Neutrophils # (Auto) 5.80 K/uL Lymphocytes # (Auto) 1.37 K/uL Monocytes # (Auto) 0.22 K/uL Eosinophils # (Auto) 0.00 K/uL Basophils # (Auto) 0.05 K/uL RDW Standard Deviation 43.9 fL RDW Coefficient of Variation 14.0 % Immature Granulocyte % (Auto) 0.4 % Immature Granulocyte # (Auto) 0.03 K/uL Echinocytes 1+ Triglycerides Level 192 mg/dl Cholesterol Level 117 mg/dl HDL Cholesterol 25 mg/dl LDL Cholesterol, Calculated 54 mg/dl VLDL Cholesterol, Calculated 38 mg/dl Cholesterol/HDL Ratio 4.7 Test 07/09/16 11:06 07/09/16 15:57 Bedside Glucose 211 mg/dl 222 mg/dl Assessment and Plan This is a 66 year old female with PMH of HTN, DM2, diastolic dysfunction presented with altered mental status Small Acute/Subacute Lacunar Infarct Brain MRI with a small acute/subacute infarct this is likely due to atrial fibrillation currently she is anticoagulated with Pradaxa should be placed on a statin prior to discharge A. Fib with RVR with alternating SVTs this morning, her HRs were in the 50s during my exam later on, went back into rapid ventricular response currently on amiodarone drip given Adenosine 6mg x 1, 12mg x 1 continues to be in A. Fib was given IV digoxin multiple times appreciate cardiology input for now, will monitor with amio drip Community Acquired Pneumonia possible underlying metabolic encephalopathy WBC wnl, no lactic acidosis no fevers, blood pressures on the low end, likely due to antiarrhythmic and A. Fib rate controlling medications for now, continue doxy and Zosyn LETY/Dehydration - resolved likely prerenal due to poor PO intake and diarrhea Baseline creat 0.7 Cr levels 1.4 prior to admission Monitor Cr levels Gentle IVF as history of diastolic dysfunction Elevated Troponin Level likely related to her A. Fib and tachyarrhythmia Diarrhea C. diff negative possibly viral in nature monitor and adjust abx. if diarrhea is a side effect Hypokalemia - resolved HTN hold JOSE-I continue metoprolol for rate control and blood pressure control Heart Failure with Preserved Ejection Fraction ECHO 01/2016 - EF 60-64%, grade II diastolic dysfunction not on routine diuretics No signs of volume overload DM II hgb a1c 6.2 04/2016 hold oral agents SSI, accu checks would d/c glitazone on discharge DVT ppx Pradaxa FULL CODE
[2016-07-09] MEDS: METOPROLOL TARTRATE 25 MG TAB PO SCH (20:05)
[2016-07-10] VITALS (17 sets, daily range): BP systolic 70–128; BP diastolic 46–87; PULSE 61–163; TEMP 36.3–36.5; O2SAT 91–98
[2016-07-10] MEDS ORDERED: LACTATED RINGER'S 1000ML 1,000 ML IV ONE
[2016-07-10] MEDS ORDERED: DIGOXIN IV 250 MCG in SYRINGE 9 ML IV ONE
[2016-07-10 01:16] LABS: HEMATOCRIT 34.6 % (37-47); MEAN CELL VOLUME 86.3 fL (80-100); MEAN CORPUSCULAR HEMOGLOBIN 29.7 pg (25-34); MEAN CORPUSCULAR HGB CONC 34.4 g/dl (32-36); MEAN PLATELET VOLUME 9.8 fL (7.4-10.4); PLATELET COUNT 122 K/uL (130-400); RED BLOOD COUNT 4.01 M/uL (4.2-5.4); WHITE BLOOD COUNT 6.35 K/uL (4.8-10.8)
[2016-07-10 01:39] LABS: BUN/CREATININE RATIO 16.6 (10-20); CALCIUM 7.5 mg/dl (8.5-10.1); CREATININE 0.8 mg/dl (0.60-1.20); MAGNESIUM 1.8 mg/dl (1.8-2.4); POTASSIUM 4.4 mmol/L (3.5-5.1)
[2016-07-10 01:53] LABS: BASO % 0.6 %; BASO ABS # 0.04 K/uL (0-0.2); COMPLETE YES; ECHINOCYTES 1+; EOS % 0.2 %; HYPOSEGMENTED POLYS 1+; IG% 0.3 %; LYMPH % 22.4 %; LYMPH ABS # 1.42 K/uL (1.2-3.4); MONO % 5.4 %; NEUT % 71.1 %
[2016-07-10] MEDS ORDERED: MAGNESIUM SULFATE 1GM / D5W 1 GM in PREMIXED IN D5W 100 ML IV ONE ×2 (02:00→16:40)
[2016-07-10] MEDS: DOXYCYCLINE IV 100 MG in DEXTROSE 5% 100ML 100 ML IV SCH ×2 (02:19→14:00)
[2016-07-10] MEDS ORDERED: SODIUM CHLORIDE 0.45% 1000ML 1,000 ML IV ONE ×2 (03:30→10:00)
--- NOTE | 2016-07-10 03:34 | Progress Note ---
Internal Med Progress Note Date of Service: Jul 10, 2016. Provider Documentation: 12 AM Made aware by RN of persistent rapid AFib/Afl, CR 179, SBP 100s extra PO Lopressor given earlier as per RN px asymptomatic as per RN fluid bolus, extra dig given EKG rapid AFl w/ 2:1 AV conduction AM labs, dig level drawn improved CR 110-130s subsequently noted 330AM Made aware by RN of abn serum digoxin level result of 7.2 430AM Digibind administered as per Pharmacy dosing for digoxin toxicity (persistent atrial tachyarrhythmia despite IV amiodarone, BB tx) 550AM Made aware by RN of rapid AFl, CR 160s, SBP 100s px asymptomatic as per RN extra fluid bolus given, AM PO Lopressor ordered to be given earlier I updated Dr. Beltrán (Cardiology) of AM developments over the phone. Dr. Beltrán requested that subsequent calls related to px's cardiac issues be turfed their service. Vital Signs: Date Time Temp Pulse Resp B/P Pulse Ox O2 Delivery O2 Flow Rate FiO2 07/10/16 08:05 Room Air 07/10/16 07:51 36.4 127 22 127/83 95 Room Air 07/10/16 06:21 163 07/10/16 05:56 160 104/68 07/10/16 05:48 161 07/10/16 05:19 112 07/10/16 04:38 112 07/10/16 04:00 Room Air 07/10/16 03:25 36.5 124 20 111/74 96 Room Air 07/10/16 03:03 104 07/10/16 02:27 160 109/78 07/10/16 02:06 118 07/10/16 01:42 112 07/10/16 01:21 120 07/10/16 00:56 134 07/10/16 00:16 169 07/10/16 00:01 Room Air 07/09/16 23:18 36.5 165 20 103/52 97 Room Air 07/09/16 22:38 168 20 94/67 96 Room Air 07/09/16 20:01 36.8 167 18 124/79 95 Room Air 07/09/16 20:01 Room Air 07/09/16 16:00 Nasal Cannula 07/09/16 12:00 Room Air 07/09/16 11:30 36.6 122 19 96/64 97 Room Air Lab Results: Results Past 24 Hours Test 07/09/16 11:06 07/09/16 15:57 07/09/16 20:11 07/10/16 01:00 Range/Units Bedside Glucose 211 222 211 70-90 mg/dl White Blood Count 6.35 4.8-10.8 K/uL Red Blood Count 4.01 4.2-5.4 M/uL Hemoglobin 11.9 12.0-16.0 g/dL Hematocrit 34.6 37-47 % Mean Corpuscular Volume 86.3 80-100 fL Mean Corpuscular Hemoglobin 29.7 25-34 pg Mean Corpuscular Hemoglobin Concent 34.4 32-36 g/dl Platelet Count 122 130-400 K/uL Mean Platelet Volume 9.8 7.4-10.4 fL Neutrophils (%) (Auto) 71.1 % Lymphocytes (%) (Auto) 22.4 % Monocytes (%) (Auto) 5.4 % Eosinophils (%) (Auto) 0.2 % Basophils (%) (Auto) 0.6 % Neutrophils # (Auto) 4.52 1.4-6.5 K/uL Lymphocytes # (Auto) 1.42 1.2-3.4 K/uL Monocytes # (Auto) 0.34 0.11-0.59 K/uL Eosinophils # (Auto) 0.01 0-0.5 K/uL Basophils # (Auto) 0.04 0-0.2 K/uL RDW Standard Deviation 44.4 36.4-46.3 fL RDW Coefficient of Variation 14.0 11.5-14.5 % Immature Granulocyte % (Auto) 0.3 % Immature Granulocyte # (Auto) 0.02 0.00-0.02 K/uL Hyposegmented Neutrophils 1+ Echinocytes 1+ Sodium Level 141 136-145 mmol/L Potassium Level 4.4 3.5-5.1 mmol/L Chloride Level 112 98-107 mmol/L Carbon Dioxide Level 18 21-32 mmol/L Anion Gap 11.0 3-11 mmol/L Blood Urea Nitrogen 13 7-18 mg/dl Creatinine 0.80 0.60-1.20 mg/dl Est Creatinine Clear Calc Drug Dose 66.0 ml/min Estimated GFR () 90.3 Estimated GFR (Non- 77.9 BUN/Creatinine Ratio 16.6 10-20 Random Glucose 179 70-99 mg/dl Lactic Acid Level 1.6 0.4-2.0 mmol/L Calcium Level 7.5 8.5-10.1 mg/dl Magnesium Level 1.8 1.8-2.4 mg/dl Albumin 2.2 3.4-5.0 gm/dl Digoxin Level 7.2 0.8-2.0 ng/ml Test 07/10/16 06:45 Range/Units Bedside Glucose 185 70-90 mg/dl
[2016-07-10] MEDS ORDERED: DIGOXIN IMMUNE FAB IV ONE ×2 (04:00)
[2016-07-10] MEDS ORDERED: SODIUM CHLORIDE 0.9% IV ONE ×2 (04:00)
[2016-07-10] MEDS ORDERED: SODIUM CHLORIDE 0.9% 1000ML 1,000 ML IV STA (06:00)
[2016-07-10] MEDS: PIPERACILL/TAZOBAC IV 3.375 GM in DEXTROSE 5% 100ML IV SCH ×3 (06:10→21:20)
[2016-07-10] MEDS ORDERED: METOPROLOL TARTRATE 25 MG TAB PO ONE ×2 (06:45)
[2016-07-10] MEDS: INSULIN ASPART 100 UNITS/ML 3 ML PEN SC SCH ×4 (07:00→21:10)
[2016-07-10] MEDS: DABIGATRAN ELEXILATE 75 MG CAP PO SCH ×2 (07:35→21:20)
[2016-07-10] MEDS: RANITIDINE HCL 150 MG TAB PO SCH ×2 (07:36→21:21)
[2016-07-10] MEDS: AMIODARONE / D5W 200 ML IV SCH (08:31)
[2016-07-10] MEDS: METOPROLOL TARTRATE 25 MG TAB PO SCH ×3 (08:35→21:21)
--- NOTE | 2016-07-10 15:01 | Neurology Progress Notes ---
Neurology Progress Note Date of Service Jul 10, 2016. Fermin Leyva is a 66 year old female with a PMH GERD, DM2, HTN, diastolic dysfunction and breast CA who presents to the ER with confusion. She was seen in the ED for nausea and diarrhea the day prior and was given IV fluids. She was diagnosed with viral gastroenteritis and sent home with a prescription for Zofran. Her daughter says she lives in [place] but she states she called her and she just didn' t sound right so she called a local relative to check on her. Diarrhea had been going on for 3 days. She had no appetite but no nausea, vomiting, or abdominal pain currently. She denies fever and chills.the chest xray showed consolidation in the left base. She had a low grade temp of 37.6 She states she ate some of her lunch today but wasn't very hungry. denies CP, SOB, abdominal pain, weakness, numbness tingling, vision change swallowing issues, headache. Objective Date Time Temp Pulse Resp B/P Pulse Ox O2 Delivery O2 Flow Rate FiO2 07/10/16 12:03 Room Air 07/10/16 10:52 36.3 61 20 104/62 98 Room Air 07/10/16 08:05 Room Air 07/10/16 07:51 36.4 127 22 127/83 95 Room Air 07/10/16 06:21 163 07/10/16 05:56 160 104/68 07/10/16 05:48 161 07/10/16 05:19 112 07/10/16 04:38 112 07/10/16 04:00 Room Air 07/10/16 03:25 36.5 124 20 111/74 96 Room Air 07/10/16 03:03 104 07/10/16 02:27 160 109/78 07/10/16 02:06 118 07/10/16 01:42 112 07/10/16 01:21 120 07/10/16 00:56 134 07/10/16 00:16 169 07/10/16 00:01 Room Air 07/09/16 23:18 36.5 165 20 103/52 97 Room Air 07/09/16 22:38 168 20 94/67 96 Room Air 07/09/16 20:01 36.8 167 18 124/79 95 Room Air 07/09/16 20:01 Room Air 07/09/16 16:00 Nasal Cannula Last 24 Hours Test 07/09/16 15:57 07/09/16 20:11 07/10/16 01:00 07/10/16 06:45 Bedside Glucose 222 mg/dl 211 mg/dl 185 mg/dl White Blood Count 6.35 K/uL Red Blood Count 4.01 M/uL Hemoglobin 11.9 g/dL Hematocrit 34.6 % Mean Corpuscular Volume 86.3 fL Mean Corpuscular Hemoglobin 29.7 pg Mean Corpuscular Hemoglobin Concent 34.4 g/dl Platelet Count 122 K/uL Mean Platelet Volume 9.8 fL Neutrophils (%) (Auto) 71.1 % Lymphocytes (%) (Auto) 22.4 % Monocytes (%) (Auto) 5.4 % Eosinophils (%) (Auto) 0.2 % Basophils (%) (Auto) 0.6 % Neutrophils # (Auto) 4.52 K/uL Lymphocytes # (Auto) 1.42 K/uL Monocytes # (Auto) 0.34 K/uL Eosinophils # (Auto) 0.01 K/uL Basophils # (Auto) 0.04 K/uL RDW Standard Deviation 44.4 fL RDW Coefficient of Variation 14.0 % Immature Granulocyte % (Auto) 0.3 % Immature Granulocyte # (Auto) 0.02 K/uL Hyposegmented Neutrophils 1+ Echinocytes 1+ Sodium Level 141 mmol/L Potassium Level 4.4 mmol/L Chloride Level 112 mmol/L Carbon Dioxide Level 18 mmol/L Anion Gap 11.0 mmol/L Blood Urea Nitrogen 13 mg/dl Creatinine 0.80 mg/dl Est Creatinine Clear Calc Drug Dose 66.0 ml/min Estimated GFR () 90.3 Estimated GFR (Non- 77.9 BUN/Creatinine Ratio 16.6 Random Glucose 179 mg/dl Lactic Acid Level 1.6 mmol/L Calcium Level 7.5 mg/dl Magnesium Level 1.8 mg/dl Albumin 2.2 gm/dl Digoxin Level 7.2 ng/ml Test 07/10/16 11:05 Bedside Glucose 235 mg/dl Imaging: no new imaging Exam: Physical Exam: Constitutional: appearance nourished, healthy and obese Ears, Nose, Mouth and Throat: mucous membranes moist, no injection and skin normal, eyes normal Cardiovascular: irregular Respiratory: clear to auscultation (CTA) and no rales, rhonchi or wheeze Musculoskeletal: no peripheral edema and good distal pulses Skin: no stigmata of neurocutaneous disease noted and normal and intact Eyes: extraocular muscles intact (EOMI) and pupils equal, round and reactive to light (PERRL) NEUROLOGIC EXAMINATION: Mental status: Alert and interactive Oriented July 2016, [facility] Oriented to person Speech fluent with no evidence of aphasia Cranial Nerves smile eye brow raise, tongue midline Sensory: cool touch and light touch Coordination: finger to nose without bi pass or tremor Gait/Stance: Posture sitting in bed side chair eating supper Strength: 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 ACHS SC 07/08/16 07:00 08/07/16 06:59 07/10/16 11:00 2 UNITS Glucose (Glucose 40% Gel) 15-30 GRAMS 15 GRAMS... UD PRN PO 07/07/16 22:15 08/06/16 22:14 Glucose (Glucose Chew Tab) 4-8 Tablets 4 Tabl... UD PRN PO 07/07/16 22:15 08/06/16 22:14 Dextrose (Dextrose 50% 50ML Syringe) 25-50ML OF 50% DW IV FOR... UD PRN IV 07/07/16 22:15 08/06/16 22:14 Glucagon (Glucagon Inj) 1 mg UD PRN SQ 07/07/16 22:15 08/06/16 22:14 Albuterol/ Ipratropium (Duoneb) 3 ml Q2H PRN INH 07/07/16 22:15 08/06/16 22:14 Lisinopril (Zestril Tab) 10 mg DAILY PO 07/08/16 09:00 08/07/16 08:59 Future Hold 07/08/16 07:42 10 MG Ranitidine HCl (zANTac TAB) 150 mg BID PO 07/08/16 09:00 08/07/16 08:59 07/10/16 07:36 150 MG Calcium Carbonate (Tums Chew Tab) 500 mg Q6H PRN PO 07/08/16 00:45 08/07/16 00:44 07/08/16 19:42 500 MG Metoprolol Succinate (Toprol Xl Tab) 12.5 mg BID17 PO 07/08/16 17:00 08/07/16 16:59 Future Hold 07/08/16 17:05 12.5 MG Gadobutrol (Gadavist) 7 mmol UD PRN IV 07/08/16 21:30 07/12/16 21:29 Piperacillin Sod/ Tazobactam Sod 1 ea 1 ea UD PRN N/A 07/08/16 23:45 08/07/16 23:44 Piperacillin Sod/ Tazobactam Sod/ Dextrose (Zosyn Iv/D5 100ml) 115 ml @ 28.75 mls/ hr Q8H IV 07/09/16 06:00 07/16/16 05:59 07/10/16 14:00 28.75 MLS/HR Dabigatran 150 mg 150 mg BID PO 07/09/16 09:00 08/08/16 08:59 07/10/16 07:35 150 MG Doxycycline Hyclate 100 mg/ Dextrose 110 ml @ 50 mls/hr Q12H IV 07/09/16 14:00 07/16/16 13:59 07/10/16 14:00 50 MLS/HR Amiodarone HCL/ Dextrose (Nexterone / D5w) 200 ml @ 16.7 mls/hr [id number] IV 07/09/16 09:45 08/08/16 09:44 07/10/16 08:31 16.7 MLS/HR Metoprolol Tartrate 25 mg 25 mg TID PO 07/09/16 21:00 08/08/16 20:59 07/10/16 14:00 25 MG Sodium Chloride (1/2 Nss 1000ml) 1,000 ml @ 75 mls/hr [id number] ONCE IV 07/10/16 10:00 07/10/16 23:19 07/10/16 11:57 75 MLS/HR Impression 66 year old female with acute MS after illness Plan 1. MRI with and without brain- MS change -hx breast CA- ( acute embolic cva left deep hemisphere ) may well be clinically silent but indicates need for anticoagulation in light of fibrillation 2. folate, B12, lyme, RPR WNL TSH low but T3 also low may be post viral 3. TTE resulted 4. correct lytes and optimize DM control 5. stop ultram -will cause confusion 6. lung consolidation treating with -Levoquin daily 7. PT/OT for discharge needs 8. carotid doppler- No hemodynamically significant stenosis seen within the carotid arteries 9. cardiology- treating with amiodarone but is fluctuating rate-possible need for ablation 10. Pradaxa started for anticoagulation 11. will be available for any input as needed I have seen and discussed above patient with Dr Robert Avery, neurology Improved neuro exam still nonfocal as would be expected inlight of the deep location of the small embolic event We will sign off for now unless things change as neuro has no further suggestions and shei is appropriately on pradaxa Robert Avery MD
--- NOTE | 2016-07-10 16:29 | Progress Note ---
Subjective Date of Service: Jul 10, 2016. Subjective Pt evaluation today including: conversation w/ patient, physical exam, lab review, review of studies, review of inpatient medication list Saw/examined the patient in room 234 She is more alert and more talkative today She denies any symptoms at this point - very eager to go home - I let her know that her heart rate was very high and she understood Wants to get out of bed Problem List Medical Problems: (1) Dehydration Status: Acute (2) Hypokalemia Status: Acute (3) Vomiting and diarrhea Status: Acute Review of Systems Constitutional: No chills, No fever Respiratory: + cough, + shortness of breath, + sputum, + wheezing, No dyspnea at rest, No dyspnea on exertion, No hemoptysis Cardiac: No chest pain, No edema, No palpitations Abdomen: No diarrhea, No nausea, No pain, No vomiting Musculoskeletal: No joint pain Heme: No abnormal bleeding/bruising Medications Current Inpatient Medications Medications (Trade) Dose Ordered Sig/Dayne Route Start Time Stop Time Status Last Admin Dose Admin Acetaminophen (Tylenol Tab) 650 mg Q4H PRN PO 07/07/16 22:15 08/06/16 22:14 07/08/16 23:08 650 MG Nitroglycerin (Nitrostat Tab) 0.4 mg UD PRN SL 07/07/16 22:15 08/06/16 22:14 Insulin Aspart (novoLOG ASPART) SLIDING SCALE If C... ACHS SC 07/08/16 07:00 08/07/16 06:59 07/10/16 11:00 2 UNITS Glucose (Glucose 40% Gel) 15-30 GRAMS 15 GRAMS... UD PRN PO 07/07/16 22:15 08/06/16 22:14 Glucose (Glucose Chew Tab) 4-8 Tablets 4 Tabl... UD PRN PO 07/07/16 22:15 08/06/16 22:14 Dextrose (Dextrose 50% 50ML Syringe) 25-50ML OF 50% DW IV FOR... UD PRN IV 07/07/16 22:15 08/06/16 22:14 Glucagon (Glucagon Inj) 1 mg UD PRN SQ 07/07/16 22:15 08/06/16 22:14 Albuterol/ Ipratropium (Duoneb) 3 ml Q2H PRN INH 07/07/16 22:15 08/06/16 22:14 Lisinopril (Zestril Tab) 10 mg DAILY PO 07/08/16 09:00 08/07/16 08:59 Future Hold 07/08/16 07:42 10 MG Ranitidine HCl (zANTac TAB) 150 mg BID PO 07/08/16 09:00 08/07/16 08:59 07/10/16 07:36 150 MG Calcium Carbonate (Tums Chew Tab) 500 mg Q6H PRN PO 07/08/16 00:45 08/07/16 00:44 07/08/16 19:42 500 MG Metoprolol Succinate (Toprol Xl Tab) 12.5 mg BID17 PO 07/08/16 17:00 08/07/16 16:59 Future Hold 07/08/16 17:05 12.5 MG Gadobutrol (Gadavist) 7 mmol UD PRN IV 07/08/16 21:30 07/12/16 21:29 Piperacillin Sod/ Tazobactam Sod 1 ea 1 ea UD PRN N/A 07/08/16 23:45 08/07/16 23:44 Piperacillin Sod/ Tazobactam Sod/ Dextrose (Zosyn Iv/D5 100ml) 115 ml @ 28.75 mls/ hr Q8H IV 07/09/16 06:00 07/16/16 05:59 07/10/16 14:00 28.75 MLS/HR Dabigatran 150 mg 150 mg BID PO 07/09/16 09:00 08/08/16 08:59 07/10/16 07:35 150 MG Amiodarone HCL/ Dextrose (Nexterone / D5w) 200 ml @ 16.7 mls/hr [id number] IV 07/09/16 09:45 08/08/16 09:44 07/10/16 08:31 16.7 MLS/HR Metoprolol Tartrate 25 mg 25 mg TID PO 07/09/16 21:00 08/08/16 20:59 07/10/16 14:00 25 MG Sodium Chloride (1/2 Nss 1000ml) 1,000 ml @ 75 mls/hr [id number] ONCE IV 07/10/16 10:00 07/10/16 23:19 07/10/16 11:57 75 MLS/HR Doxycycline Hyclate (Vibramycin Cap) 100 mg BID@1000,2200 PO 07/10/16 22:00 07/17/16 21:59 Objective Vital Signs Date Time Temp Pulse Resp B/P Pulse Ox O2 Delivery O2 Flow Rate FiO2 07/10/16 15:41 108 70/46 07/10/16 15:19 36.4 76 18 78/52 91 Room Air 07/10/16 12:03 Room Air 07/10/16 10:52 36.3 61 20 104/62 98 Room Air 07/10/16 08:05 Room Air 07/10/16 07:51 36.4 127 22 127/83 95 Room Air 07/10/16 06:21 163 07/10/16 05:56 160 104/68 07/10/16 05:48 161 07/10/16 05:19 112 07/10/16 04:38 112 07/10/16 04:00 Room Air 07/10/16 03:25 36.5 124 20 111/74 96 Room Air 07/10/16 03:03 104 07/10/16 02:27 160 109/78 07/10/16 02:06 118 07/10/16 01:42 112 07/10/16 01:21 120 07/10/16 00:56 134 07/10/16 00:16 169 07/10/16 00:01 Room Air 07/09/16 23:18 36.5 165 20 103/52 97 Room Air 07/09/16 22:38 168 20 94/67 96 Room Air 07/09/16 20:01 36.8 167 18 124/79 95 Room Air 07/09/16 20:01 Room Air Physical Exam General Appearance: no apparent distress Respiratory/Chest: lungs clear, normal breath sounds, no respiratory distress, no accessory muscle use Cardiovascular: no edema, no murmur, + tachycardia, + irregularly irregular Abdomen: normal bowel sounds, non tender, soft Extremities: normal inspection, no pedal edema Neurologic/Psychiatric: no motor/sensory deficits, alert, normal mood/affect Laboratory Results Last 24 Hours Test 07/09/16 20:11 07/10/16 01:00 07/10/16 06:45 07/10/16 11:05 Bedside Glucose 211 mg/dl 185 mg/dl 235 mg/dl White Blood Count 6.35 K/uL Red Blood Count 4.01 M/uL Hemoglobin 11.9 g/dL Hematocrit 34.6 % Mean Corpuscular Volume 86.3 fL Mean Corpuscular Hemoglobin 29.7 pg Mean Corpuscular Hemoglobin Concent 34.4 g/dl Platelet Count 122 K/uL Mean Platelet Volume 9.8 fL Neutrophils (%) (Auto) 71.1 % Lymphocytes (%) (Auto) 22.4 % Monocytes (%) (Auto) 5.4 % Eosinophils (%) (Auto) 0.2 % Basophils (%) (Auto) 0.6 % Neutrophils # (Auto) 4.52 K/uL Lymphocytes # (Auto) 1.42 K/uL Monocytes # (Auto) 0.34 K/uL Eosinophils # (Auto) 0.01 K/uL Basophils # (Auto) 0.04 K/uL RDW Standard Deviation 44.4 fL RDW Coefficient of Variation 14.0 % Immature Granulocyte % (Auto) 0.3 % Immature Granulocyte # (Auto) 0.02 K/uL Hyposegmented Neutrophils 1+ Echinocytes 1+ Sodium Level 141 mmol/L Potassium Level 4.4 mmol/L Chloride Level 112 mmol/L Carbon Dioxide Level 18 mmol/L Anion Gap 11.0 mmol/L Blood Urea Nitrogen 13 mg/dl Creatinine 0.80 mg/dl Est Creatinine Clear Calc Drug Dose 66.0 ml/min Estimated GFR () 90.3 Estimated GFR (Non- 77.9 BUN/Creatinine Ratio 16.6 Random Glucose 179 mg/dl Lactic Acid Level 1.6 mmol/L Calcium Level 7.5 mg/dl Magnesium Level 1.8 mg/dl Albumin 2.2 gm/dl Digoxin Level 7.2 ng/ml Test 07/10/16 15:48 Bedside Glucose 203 mg/dl Assessment and Plan This is a 66 year old female with PMH of HTN, DM2, diastolic dysfunction presented with altered mental status A. Fib with RVR 07/10 appreciate cardiology input possible cardioversion? currently patient is on an amiodarone drip received dig bind secondary to elevated digoxin levels; dig toxicity b-blockers continued given Mg x 1gram overnight, another gram today 07/09 with alternating SVTs this morning, her HRs were in the 50s during my exam later on, went back into rapid ventricular response currently on amiodarone drip given Adenosine 6mg x 1, 12mg x 1 continues to be in A. Fib was given IV digoxin multiple times appreciate cardiology input for now, will monitor with amio drip Small Acute/Subacute Lacunar Infarct Brain MRI with a small acute/subacute infarct this is likely due to atrial fibrillation currently she is anticoagulated with Pradaxa cont. Statin Community Acquired Pneumonia possible underlying metabolic encephalopathy WBC wnl, no lactic acidosis no fevers, blood pressures on the low end, likely due to antiarrhythmic and A. Fib rate controlling medications for now, continue doxy and Zosyn LETY/Dehydration - resolved 07/10 giving another 500mL bolus patient becoming hypotensive, likely related to the medications controlling HR ( as above) monitor blood pressure 07/09 likely prerenal due to poor PO intake and diarrhea Baseline creat 0.7 Cr levels 1.4 prior to admission Monitor Cr levels Gentle IVF as history of diastolic dysfunction Elevated Troponin Level likely related to her A. Fib and tachyarrhythmia Diarrhea C. diff negative possibly viral in nature monitor and adjust abx. if diarrhea is a side effect Hypokalemia - resolved HTN hold JOSE-I continue metoprolol for rate control and blood pressure control Heart Failure with Preserved Ejection Fraction ECHO 01/2016 - EF 60-64%, grade II diastolic dysfunction not on routine diuretics No signs of volume overload DM II hgb a1c 6.2 04/2016 hold oral agents SSI, accu checks would d/c glitazone on discharge DVT ppx Pradaxa FULL CODE
[2016-07-10] MEDS ORDERED: SODIUM CHLORIDE 0.9% 500ML 500 ML IV SCH (16:30)
--- NOTE | 2016-07-10 17:09 | CARDIOLOGY PROGRESS NOTE ---
DATE: 07/10/2016 DATE: 07/10/2016. The patient seen and examined. Chart, medications, telemetry reviewed. Events of past evening noted. SUBJECTIVE: The patient last evening due to tachycardia, received additional dose of digoxin, magnesium with little change in heart rate. Digoxin level drawn shortly after administration of digoxin demonstrated elevated rate of uncertain significance. She remained tachycardia without pauses. Due to elevated digoxin levels she was given Digibind and remained tachycardic throughout the night. Today, she has manifested predominantly atrial flutter, though with occasional atrial fibrillation with some slowing and 2 spontaneous conversions with marked sinus bradycardia. She remains asymptomatic from a cardiac standpoint, was out of bed to chair earlier today. Notes no unexplained fevers or infections. Notes no productive cough. Mentation appears stable without focal neurologic complaint. PHYSICAL EXAMINATION: VITAL SIGNS: Heart rate is 108, blood pressure is 104/62 earlier, now in 80s systolic. NECK: Thin. There is no jugular venous distention. LUNGS: Notable for diminished breath sounds at the left base. CARDIOVASCULAR EXAMINATION: Irregular irregular. There is no S3 gallop. ABDOMEN: Soft, nontender. EXTREMITIES: Without cyanosis or clubbing. There is no peripheral edema. LABORATORY DATA: This morning, sodium is 141, potassium 4.4, chloride 112, bicarbonate 18, BUN 13, creatinine 0.8. Urine protein on admission was 2+. EKG this morning demonstrated atrial flutter with 2:1 AV conduction, rate 163. IMPRESSION: Complex 66-year-old female presented with mental status changes, possible stroke preceding symptoms of gastroenteritis and upper respiratory infection. Chest x-ray reveals consolidative left lower lobe infiltrate on initial and followup x-rays. The patient is appropriately anticoagulated due to atrial arrhythmias and stroke. She has had persistent Afib flutter with very rapid ventricular response x2 days with multiple medical therapies at times when she has spontaneously converted to sinus rhythm, marked sinus bradycardia was present but not acute ST segment changes. RECOMMENDATIONS: Will switch IV amiodarone to oral. I agree with fluid bolus as ordered given low blood pressures. We will keep n.p.o. after midnight tonight for consideration of synchronized electrical cardioversion in a.m. Depending on clinical course urine will be repeated to assess for protein levels given hypoalbuminemia present on initial admission. Would use caution given any further medications to lower heart rate given bradycardia when patient intermittently returns to sinus. If blood pressures decline further would hold oral metoprolol. MTDD
[2016-07-10] MEDS ORDERED: NURSING VERBAL MED ORDER ONE (17:15)
[2016-07-10] MEDS: AMIODARONE 200 MG TAB PO SCH ×2 (19:28→23:30)
[2016-07-10] MEDS: DOXYCYCLINE HYCLATE 100 MG CAP PO SCH (21:21)
[2016-07-10 22:44] LABS: URINE APPEARANCE CLEAR (CLEAR); URINE BILIRUBIN NEG (NEG); URINE COLOR YELLOW; URINE EPITHELIAL CELL AUTO >30 /lpf (0-5); URINE NITRITE NEG (NEG); URINE PH 5.5 (4.5-7.5); URINE SPECIFIC GRAVITY 1.009 (1.000-1.030); UROBILINOGEN NEG (NEG)
[2016-07-10 22:45] LABS: MANUAL MICROSCOPIC REQUIRED? NO; REVIEW REQ? YES
[2016-07-10 22:58] LABS: URINE PATH CASTS 0-3 WBC CASTS /lpf (0)
[2016-07-11] VITALS (9 sets, daily range): BP systolic 107–148; BP diastolic 78–93; PULSE 71–96; TEMP 36.4–36.9; O2SAT 92–96
[2016-07-11] MEDS: PIPERACILL/TAZOBAC IV 3.375 GM in DEXTROSE 5% 100ML IV SCH ×3 (05:53→20:46)
[2016-07-11] MEDS: AMIODARONE 200 MG TAB PO SCH ×4 (05:54→23:36)
[2016-07-11 06:09] LABS: HEMATOCRIT 32.9 % (37-47); MEAN CELL VOLUME 83.5 fL (80-100); MEAN CORPUSCULAR HEMOGLOBIN 29.9 pg (25-34); MEAN CORPUSCULAR HGB CONC 35.9 g/dl (32-36); MEAN PLATELET VOLUME 10.1 fL (7.4-10.4); PLATELET COUNT 152 K/uL (130-400); RED BLOOD COUNT 3.94 M/uL (4.2-5.4); WHITE BLOOD COUNT 5.58 K/uL (4.8-10.8)
[2016-07-11 06:42] LABS: BUN/CREATININE RATIO 14.4 (10-20); CALCIUM 7.5 mg/dl (8.5-10.1); CREATININE 0.62 mg/dl (0.60-1.20); POTASSIUM 3.8 mmol/L (3.5-5.1)
[2016-07-11] MEDS: INSULIN ASPART 100 UNITS/ML 3 ML PEN SC SCH ×4 (09:12→20:42)
[2016-07-11] MEDS: RANITIDINE HCL 150 MG TAB PO SCH ×2 (09:19→20:46)
[2016-07-11] MEDS: DOXYCYCLINE HYCLATE 100 MG CAP PO SCH ×2 (09:19→20:46)
[2016-07-11] MEDS: METOPROLOL TARTRATE 25 MG TAB PO SCH ×3 (09:19→20:46)
[2016-07-11] MEDS: DABIGATRAN ELEXILATE 75 MG CAP PO SCH ×2 (09:19→20:46)
[2016-07-11] MEDS ORDERED: POTASSIUM CHLORIDE 20 MEQ TABCR PO STA (09:57)
--- NOTE | 2016-07-11 12:50 | CARDIOLOGY PROGRESS NOTE ---
DATE: 07/11/2016 DATE: 07/11/2016. The patient seen and examined. Chart, medications, telemetry reviewed. SUBJECTIVE: The patient has had more sinus rhythm with intermittent returns to baseline rhythm followed by atrial fibrillation with rapid ventricular response. The patient is asymptomatic, is anxious to leave the hospital. She is appropriately anticoagulated. Rhythms appear to be improving. OBJECTIVE: VITAL SIGNS: Heart rate 96, blood pressure is 127/89. Current examination reveals sinus rhythm at a rate of 70, O2 saturations 95% on room air. NECK: Thin. There is no jugular venous distention. LUNGS: Predominantly clear. CARDIOVASCULAR EXAMINATION: Currently regular. There is no audible murmur or rub. ABDOMEN: Soft, nontender. EXTREMITIES: Without cyanosis or clubbing. There is no peripheral edema. There is no cord or Homans sign. LABORATORY DATA: Sodium is 141, potassium is 3.8, chloride is 111, bicarbonate is 18, BUN is 9, creatinine is 0.62. IMPRESSION: Very complex 66-year-old female admitted with acute pneumonia complicated by atrial fibrillation with rapid ventricular response, possible embolic stroke. She is currently on anticoagulation with Pradaxa. Heart rhythms have been difficult to control despite medical therapies, though currently with oral amiodarone and metoprolol she is manifesting more sinus mechanism. PLAN: Continue metoprolol and amiodarone as planned. Will resume diet without plans for synchronized cardioversion today. Potassium will be supplemented.
--- NOTE | 2016-07-11 13:49 | Progress Note ---
Subjective Date of Service: Jul 11, 2016. Subjective Pt evaluation today including: conversation w/ patient, physical exam, lab review, review of studies, review of inpatient medication list Saw/examined the patient in room 234 Doing well, no problems/issues to note Very eager to go home, no symptoms Problem List Medical Problems: (1) Dehydration Status: Acute (2) Hypokalemia Status: Acute (3) Vomiting and diarrhea Status: Acute Review of Systems Constitutional: No chills, No fever Respiratory: + cough, No dyspnea on exertion, No shortness of breath, No sputum , No wheezing Cardiac: No chest pain, No edema, No palpitations Abdomen: No diarrhea, No nausea, No pain, No vomiting Medications Current Inpatient Medications Medications (Trade) Dose Ordered Sig/Dayne Route Start Time Stop Time Status Last Admin Dose Admin Acetaminophen (Tylenol Tab) 650 mg Q4H PRN PO 07/07/16 22:15 08/06/16 22:14 07/08/16 23:08 650 MG Nitroglycerin (Nitrostat Tab) 0.4 mg UD PRN SL 07/07/16 22:15 08/06/16 22:14 Insulin Aspart (novoLOG ASPART) SLIDING SCALE If C... ACHS SC 07/08/16 07:00 08/07/16 06:59 07/11/16 12:13 1 UNITS Glucose (Glucose 40% Gel) 15-30 GRAMS 15 GRAMS... UD PRN PO 07/07/16 22:15 08/06/16 22:14 Glucose (Glucose Chew Tab) 4-8 Tablets 4 Tabl... UD PRN PO 07/07/16 22:15 08/06/16 22:14 Dextrose (Dextrose 50% 50ML Syringe) 25-50ML OF 50% DW IV FOR... UD PRN IV 07/07/16 22:15 08/06/16 22:14 Glucagon (Glucagon Inj) 1 mg UD PRN SQ 07/07/16 22:15 08/06/16 22:14 Albuterol/ Ipratropium (Duoneb) 3 ml Q2H PRN INH 07/07/16 22:15 08/06/16 22:14 Lisinopril (Zestril Tab) 10 mg DAILY PO 07/08/16 09:00 08/07/16 08:59 Future Hold 07/08/16 07:42 10 MG Ranitidine HCl (zANTac TAB) 150 mg BID PO 07/08/16 09:00 08/07/16 08:59 07/11/16 09:19 150 MG Calcium Carbonate (Tums Chew Tab) 500 mg Q6H PRN PO 07/08/16 00:45 08/07/16 00:44 07/08/16 19:42 500 MG Metoprolol Succinate (Toprol Xl Tab) 12.5 mg BID17 PO 07/08/16 17:00 08/07/16 16:59 Future Hold 07/08/16 17:05 12.5 MG Gadobutrol (Gadavist) 7 mmol UD PRN IV 07/08/16 21:30 07/12/16 21:29 Piperacillin Sod/ Tazobactam Sod 1 ea 1 ea UD PRN N/A 07/08/16 23:45 08/07/16 23:44 Piperacillin Sod/ Tazobactam Sod/ Dextrose (Zosyn Iv/D5 100ml) 115 ml @ 28.75 mls/ hr Q8H IV 07/09/16 06:00 07/16/16 05:59 07/11/16 05:53 28.75 MLS/HR Dabigatran (Pradaxa Cap) 150 mg BID PO 07/09/16 09:00 08/08/16 08:59 07/11/16 09:19 150 MG Metoprolol Tartrate (Lopressor Tab) 25 mg TID PO 07/09/16 21:00 08/08/16 20:59 07/11/16 09:19 25 MG Doxycycline Hyclate (Vibramycin Cap) 100 mg BID@1000,2200 PO 07/10/16 22:00 07/17/16 21:59 07/11/16 09:19 100 MG Amiodarone HCl (Cordarone Tab) 200 mg Q6 PO 07/10/16 18:00 08/09/16 17:59 07/11/16 12:12 200 MG Objective Vital Signs Date Time Temp Pulse Resp B/P Pulse Ox O2 Delivery O2 Flow Rate FiO2 07/11/16 12:00 Room Air 07/11/16 11:00 36.6 96 20 127/89 95 Room Air 07/11/16 08:00 Room Air 07/11/16 07:32 36.8 94 20 130/80 96 Room Air 07/11/16 03:25 36.7 89 18 148/84 96 Room Air 07/11/16 00:02 36.4 87 18 107/82 94 Room Air 07/11/16 00:01 Room Air 07/10/16 20:00 Room Air 07/10/16 18:56 36.5 102 18 128/87 97 Room Air 07/10/16 16:00 Room Air 07/10/16 15:41 108 70/46 07/10/16 15:19 36.4 76 18 78/52 91 Room Air Physical Exam General Appearance: no apparent distress Respiratory/Chest: lungs clear, normal breath sounds, no respiratory distress, no accessory muscle use Cardiovascular: regular rate, rhythm, no edema, no murmur Abdomen: normal bowel sounds, non tender, soft Extremities: normal inspection, no pedal edema Neurologic/Psychiatric: + pertinent finding (reserved affect/mood) Laboratory Results Last 24 Hours Test 07/10/16 15:48 07/10/16 18:40 07/10/16 19:45 07/11/16 05:30 Bedside Glucose 203 mg/dl 224 mg/dl Free Triiodothyronine 1.88 pg/ml White Blood Count 5.58 K/uL Red Blood Count 3.94 M/uL Hemoglobin 11.8 g/dL Hematocrit 32.9 % Mean Corpuscular Volume 83.5 fL Mean Corpuscular Hemoglobin 29.9 pg Mean Corpuscular Hemoglobin Concent 35.9 g/dl RDW Standard Deviation 43.8 fL RDW Coefficient of Variation 14.1 % Platelet Count 152 K/uL Mean Platelet Volume 10.1 fL Nucleated RBC Absolute Count (auto) 0.02 K/uL Nucleated Red Blood Cells % 0.3 % Sodium Level 141 mmol/L Potassium Level 3.8 mmol/L Chloride Level 111 mmol/L Carbon Dioxide Level 18 mmol/L Anion Gap 12.0 mmol/L Blood Urea Nitrogen 9 mg/dl Creatinine 0.62 mg/dl Est Creatinine Clear Calc Drug Dose 88.8 ml/min Estimated GFR () 110.4 Estimated GFR (Non- 95.3 BUN/Creatinine Ratio 14.4 Random Glucose 193 mg/dl Calcium Level 7.5 mg/dl Magnesium Level 2.0 mg/dl Digoxin Level 1.0 ng/ml Test 07/11/16 06:46 07/11/16 11:19 Bedside Glucose 202 mg/dl 204 mg/dl Assessment and Plan This is a 66 year old female with PMH of HTN, DM2, diastolic dysfunction presented with altered mental status A. Fib with RVR 07/11 appreciate cardiology input now on b-estefany and oral amiodarone HRs much improved, though alternating with A. Fib with RVR during exam, HRs in the 60s-70s 07/10 appreciate cardiology input possible cardioversion? currently patient is on an amiodarone drip received dig bind secondary to elevated digoxin levels; dig toxicity b-blockers continued given Mg x 1gram overnight, another gram today 07/09 with alternating SVTs this morning, her HRs were in the 50s during my exam later on, went back into rapid ventricular response currently on amiodarone drip given Adenosine 6mg x 1, 12mg x 1 continues to be in A. Fib was given IV digoxin multiple times appreciate cardiology input for now, will monitor with amio drip Small Acute/Subacute Lacunar Infarct Brain MRI with a small acute/subacute infarct this is likely due to atrial fibrillation currently she is anticoagulated with Pradaxa cont. Statin Community Acquired Pneumonia 07/11 PO doxycycline continue IV Zosyn for now WBC wnl, no lactic acidosis 07/10 possible underlying metabolic encephalopathy WBC wnl, no lactic acidosis no fevers, blood pressures on the low end, likely due to antiarrhythmic and A. Fib rate controlling medications for now, continue doxy and Zosyn LETY/Dehydration - resolved 07/10 giving another 500mL bolus patient becoming hypotensive, likely related to the medications controlling HR ( as above) monitor blood pressure 07/09 likely prerenal due to poor PO intake and diarrhea Baseline creat 0.7 Cr levels 1.4 prior to admission Monitor Cr levels Gentle IVF as history of diastolic dysfunction Elevated Troponin Level likely related to her A. Fib and tachyarrhythmia Diarrhea C. diff negative possibly viral in nature monitor and adjust abx. if diarrhea is a side effect Hypokalemia - resolved HTN hold JOSE-I continue metoprolol for rate control and blood pressure control Heart Failure with Preserved Ejection Fraction ECHO 01/2016 - EF 60-64%, grade II diastolic dysfunction not on routine diuretics No signs of volume overload DM II hgb a1c 6.2 04/2016 hold oral agents SSI, accu checks would d/c glitazone on discharge DVT ppx Pradaxa FULL CODE
[2016-07-12 03:50] VITALS: BP 146/87; PULSE 90; TEMP 36.6; O2SAT 94
[2016-07-12] MEDS: AMIODARONE 200 MG TAB PO SCH (06:17)
[2016-07-12] MEDS: PIPERACILL/TAZOBAC IV 3.375 GM in DEXTROSE 5% 100ML IV SCH ×2 (06:17→14:00)
[2016-07-12 06:59] LABS: HEMATOCRIT 31.4 % (37-47); MEAN CELL VOLUME 85.6 fL (80-100); MEAN CORPUSCULAR HEMOGLOBIN 29.4 pg (25-34); MEAN CORPUSCULAR HGB CONC 34.4 g/dl (32-36); PLATELET COUNT 165 K/uL (130-400); RED BLOOD COUNT 3.67 M/uL (4.2-5.4); WHITE BLOOD COUNT 4.35 K/uL (4.8-10.8)
[2016-07-12 07:25] LABS: BUN/CREATININE RATIO 14.5 (10-20); CALCIUM 7.8 mg/dl (8.5-10.1); CREATININE 0.53 mg/dl (0.60-1.20); MAGNESIUM 1.8 mg/dl (1.8-2.4); POTASSIUM 3.6 mmol/L (3.5-5.1)
[2016-07-12 07:47] VITALS: BP 143/75; PULSE 84; TEMP 36.8; O2SAT 96
[2016-07-12] MEDS ORDERED: MAGNESIUM SULFATE 1GM / D5W 1 GM in PREMIXED IN D5W 100 ML IV STA (08:05)
[2016-07-12] MEDS ORDERED: POTASSIUM CHLORIDE 10 MEQ TABCR PO STA (08:05)
[2016-07-12] MEDS: DOXYCYCLINE HYCLATE 100 MG CAP PO SCH (08:43)
[2016-07-12] MEDS: RANITIDINE HCL 150 MG TAB PO SCH (08:44)
[2016-07-12] MEDS: DABIGATRAN ELEXILATE 75 MG CAP PO SCH (08:44)
[2016-07-12] MEDS: METOPROLOL TARTRATE 25 MG TAB PO SCH ×2 (08:44→14:14)
[2016-07-12] MEDS: INSULIN ASPART 100 UNITS/ML 3 ML PEN SC SCH ×2 (08:45→11:44)
--- NOTE | 2016-07-12 10:30 | Progress Note ---
Subjective Date of Service: Jul 12, 2016. Subjective Pt evaluation today including: conversation w/ patient, physical exam, lab review, review of studies, review of inpatient medication list Saw/examined the patient in room 234 Very anxious to go home, denies any symptoms Denies chest pain/palpitations Has been in sinus rhythm in the 60s-70s Problem List Medical Problems: (1) Dehydration Status: Acute (2) Hypokalemia Status: Acute (3) Vomiting and diarrhea Status: Acute Review of Systems Constitutional: No chills, No fever, No weakness Respiratory: No cough, No dyspnea at rest, No dyspnea on exertion, No hemoptysis, No shortness of breath, No sputum, No wheezing Cardiac: No chest pain, No edema, No palpitations Abdomen: No GI bleeding, No constipation, No diarrhea, No nausea, No pain, No vomiting Heme: No abnormal bleeding/bruising Medications Current Inpatient Medications Medications (Trade) Dose Ordered Sig/Dayne Route Start Time Stop Time Status Last Admin Dose Admin Acetaminophen (Tylenol Tab) 650 mg Q4H PRN PO 07/07/16 22:15 08/06/16 22:14 07/08/16 23:08 650 MG Nitroglycerin (Nitrostat Tab) 0.4 mg UD PRN SL 07/07/16 22:15 08/06/16 22:14 Insulin Aspart (novoLOG ASPART) SLIDING SCALE If C... ACHS SC 07/08/16 07:00 08/07/16 06:59 07/11/16 20:42 1 UNITS Glucose (Glucose 40% Gel) 15-30 GRAMS 15 GRAMS... UD PRN PO 07/07/16 22:15 08/06/16 22:14 Glucose (Glucose Chew Tab) 4-8 Tablets 4 Tabl... UD PRN PO 07/07/16 22:15 08/06/16 22:14 Dextrose (Dextrose 50% 50ML Syringe) 25-50ML OF 50% DW IV FOR... UD PRN IV 07/07/16 22:15 08/06/16 22:14 Glucagon (Glucagon Inj) 1 mg UD PRN SQ 07/07/16 22:15 08/06/16 22:14 Albuterol/ Ipratropium (Duoneb) 3 ml Q2H PRN INH 07/07/16 22:15 08/06/16 22:14 Lisinopril (Zestril Tab) 10 mg DAILY PO 07/08/16 09:00 08/07/16 08:59 Future hold 07/08/16 07:42 10 MG Ranitidine HCl (zANTac TAB) 150 mg BID PO 07/08/16 09:00 08/07/16 08:59 07/12/16 08:44 150 MG Calcium Carbonate (Tums Chew Tab) 500 mg Q6H PRN PO 07/08/16 00:45 08/07/16 00:44 07/08/16 19:42 500 MG Gadobutrol (Gadavist) 7 mmol UD PRN IV 07/08/16 21:30 07/12/16 21:29 Piperacillin Sod/ Tazobactam Sod 1 ea 1 ea UD PRN N/A 07/08/16 23:45 08/07/16 23:44 Piperacillin Sod/ Tazobactam Sod/ Dextrose (Zosyn Iv/D5 100ml) 115 ml @ 28.75 mls/ hr Q8H IV 07/09/16 06:00 07/16/16 05:59 07/12/16 06:17 28.75 MLS/HR Dabigatran (Pradaxa Cap) 150 mg BID PO 07/09/16 09:00 08/08/16 08:59 07/12/16 08:44 150 MG Metoprolol Tartrate (Lopressor Tab) 25 mg TID PO 07/09/16 21:00 08/08/16 20:59 07/12/16 08:44 25 MG Doxycycline Hyclate (Vibramycin Cap) 100 mg BID@1000,2200 PO 07/10/16 22:00 07/17/16 21:59 07/12/16 08:43 100 MG Amiodarone HCl (Cordarone Tab) 200 mg Q6 PO 07/10/16 18:00 08/09/16 17:59 07/12/16 06:17 200 MG Objective Vital Signs Date Time Temp Pulse Resp B/P Pulse Ox O2 Delivery O2 Flow Rate FiO2 07/12/16 08:00 Room Air 07/12/16 07:47 36.8 84 20 143/75 96 Room Air 07/12/16 04:00 Room Air 07/12/16 03:50 36.6 90 17 146/87 94 Room Air 07/12/16 00:00 Room Air 07/11/16 23:47 36.5 82 19 133/82 96 Room Air 07/11/16 23:36 81 132/79 07/11/16 20:00 Room Air 07/11/16 19:19 36.9 78 16 148/78 92 Room Air 07/11/16 16:00 Room Air 07/11/16 15:19 36.5 71 16 137/84 96 Room Air 07/11/16 13:55 75 94 07/11/16 12:00 Room Air 07/11/16 11:00 36.6 96 20 127/89 95 Room Air Physical Exam General Appearance: no apparent distress Respiratory/Chest: chest non-tender, lungs clear, normal breath sounds, no respiratory distress, no accessory muscle use Cardiovascular: regular rate, rhythm, no edema, no murmur Abdomen: normal bowel sounds, non tender, soft Extremities: normal inspection, no pedal edema Neurologic/Psychiatric: no motor/sensory deficits, alert, + pertinent finding ( flat affect) Laboratory Results Last 24 Hours Test 07/11/16 11:19 07/11/16 16:02 07/11/16 20:02 07/12/16 06:15 Bedside Glucose 204 mg/dl 196 mg/dl 203 mg/dl White Blood Count 4.35 K/uL Red Blood Count 3.67 M/uL Hemoglobin 10.8 g/dL Hematocrit 31.4 % Mean Corpuscular Volume 85.6 fL Mean Corpuscular Hemoglobin 29.4 pg Mean Corpuscular Hemoglobin Concent 34.4 g/dl RDW Standard Deviation 45.0 fL RDW Coefficient of Variation 14.4 % Platelet Count 165 K/uL Mean Platelet Volume 10.0 fL Sodium Level 143 mmol/L Potassium Level 3.6 mmol/L Chloride Level 113 mmol/L Carbon Dioxide Level 18 mmol/L Anion Gap 12.0 mmol/L Blood Urea Nitrogen 8 mg/dl Creatinine 0.53 mg/dl Est Creatinine Clear Calc Drug Dose 104.3 ml/min Estimated GFR () 116.3 Estimated GFR (Non- 100.3 BUN/Creatinine Ratio 14.5 Random Glucose 172 mg/dl Calcium Level 7.8 mg/dl Magnesium Level 1.8 mg/dl Test 07/12/16 06:43 Bedside Glucose 172 mg/dl Assessment and Plan This is a 66 year old female with PMH of HTN, DM2, diastolic dysfunction presented with altered mental status A. Fib with RVR 07/12 HRs have improved and she is now in sinus rhythm continue metoprolol 25mg TID, and amiodarone 200mg q6 Pradaxa for anticoagulation 07/11 appreciate cardiology input now on b-estefany and oral amiodarone HRs much improved, though alternating with A. Fib with RVR during exam, HRs in the 60s-70s 07/10 appreciate cardiology input possible cardioversion? currently patient is on an amiodarone drip received dig bind secondary to elevated digoxin levels; dig toxicity b-blockers continued given Mg x 1gram overnight, another gram today 07/09 with alternating SVTs this morning, her HRs were in the 50s during my exam later on, went back into rapid ventricular response currently on amiodarone drip given Adenosine 6mg x 1, 12mg x 1 continues to be in A. Fib was given IV digoxin multiple times appreciate cardiology input for now, will monitor with amio drip Small Acute/Subacute Lacunar Infarct 07/12 statin, Pradaxa on discharge 07/11 Brain MRI with a small acute/subacute infarct this is likely due to atrial fibrillation currently she is anticoagulated with Pradaxa cont. Statin Community Acquired Pneumonia 07/12 will obtain CXR switch to oral Augmentin on discharge 07/11 PO doxycycline continue IV Zosyn for now WBC wnl, no lactic acidosis 07/10 possible underlying metabolic encephalopathy WBC wnl, no lactic acidosis no fevers, blood pressures on the low end, likely due to antiarrhythmic and A. Fib rate controlling medications for now, continue doxy and Zosyn LETY/Dehydration - resolved 07/10 giving another 500mL bolus patient becoming hypotensive, likely related to the medications controlling HR ( as above) monitor blood pressure 07/09 likely prerenal due to poor PO intake and diarrhea Baseline creat 0.7 Cr levels 1.4 prior to admission Monitor Cr levels Gentle IVF as history of diastolic dysfunction Elevated Troponin Level likely related to her A. Fib and tachyarrhythmia Diarrhea C. diff negative possibly viral in nature monitor and adjust abx. if diarrhea is a side effect Hypokalemia - resolved HTN hold JOSE-I continue metoprolol for rate control and blood pressure control Heart Failure with Preserved Ejection Fraction ECHO 01/2016 - EF 60-64%, grade II diastolic dysfunction not on routine diuretics No signs of volume overload DM II hgb a1c 6.2 04/2016 hold oral agents SSI, accu checks would d/c glitazone on discharge DVT ppx Pradaxa FULL CODE Discharge planning: home with home health
[2016-07-12] MEDS ORDERED: METOPROLOL TARTRATE 25 MG TAB PO ONE (11:00)
--- NOTE | 2016-07-12 11:33 | PROGRESS NOTE ---
DATE: 07/12/2016 CARDIOLOGY CONSULTATION FOLLOWUP NOTE The patient seen and examined. Chart and telemetry reviewed. SUBJECTIVE: The patient feels improved this morning. She has had no further atrial fibrillation since noon yesterday. Notes no dizziness or lightheadedness. Notes no syncope or near syncope. Coughing issues have improved. She has had no bleeding issues on current anticoagulation. OBJECTIVE: VITAL SIGNS: Heart rate is 80, blood pressure is 143/75. NECK: Thick. There is no jugular venous distention. LUNGS: Predominantly clear. CARDIOVASCULAR: Regular. There is no S3 gallop. ABDOMEN: Soft, nontender. EXTREMITIES: Without cyanosis or clubbing. There is no peripheral edema. SKIN: Reveals rosacea changes of the face. LABORATORY DATA: White cell count is 4.3, hemoglobin is 10.8, and platelet count is 165. Sodium is 143, potassium is 3.6, chloride is 113, BUN is 8, creatinine 0.53, and glucose is 172. IMPRESSION: Complex 66-year-old female admitted with issues as follows: 1. Pneumonia. 2. Acute obtundation, multifactorial, possible stroke with risk factors for embolic disease with the patient demonstrating atrial fibrillation intermittently on admission. 3. Two sustained atrial fibrillation/flutter with rapid ventricular response, now responding to antiarrhythmic therapy, controlled in sinus rhythm on current dosing of sotalol. RECOMMENDATIONS: Will increase metoprolol to 50 mg twice per day for heart rate and blood pressure control. Continue amiodarone dosing with the patient to be discharged on 200 mg twice per day. Potassium has been supplemented this morning, may consider low dose potassium supplement discharge. Chest x-ray will be ordered. The patient's presentation had multiple anomalous features including presentation with mild thrombocytopenia and hypoalbuminemia. Will need close clinical followup. [facility]
[2016-07-12 12:00] VITALS: BP 141/69; PULSE 72; TEMP 36.9; O2SAT 95
--- NOTE | 2016-07-12 12:00 | DIAGNOSTIC IMAGING REPORT ---
TWO VIEW CHEST CLINICAL HISTORY: Pneumonia. FINDINGS: PA and lateral chest radiographs are compared to study dated 07/09/2016. The cardiomediastinal silhouette is unremarkable. There is airspace consolidation left mid to lower lung with a small left pleural effusion. The right lung is grossly clear. There is no pneumothorax. The skeletal structures are osteopenic. Mild degenerative change is noted throughout the thoracic spine. Surgical clips are seen in the right axilla. IMPRESSION: There is airspace consolidation in the left mid to lower lung with a small left pleural effusion. The appearance is typical for pneumonia. Continued radiographic follow-up to resolution is recommended. Electronically signed by: Bubba Templeton M.D. 07/12/2016 11:59 AM Dictated Date/Time: 07/12/2016 11:57 AM
[2016-07-12 12:20] VITALS: BP 144/84; PULSE 70; TEMP 36.7; O2SAT 95
[2016-07-12] MEDS ORDERED: PRD75 PO (13:45)
[2016-07-12] MEDS ORDERED: MCRK20 PO (13:45)
[2016-07-12] MEDS ORDERED: CRD200 PO (13:45)
[2016-07-12] MEDS ORDERED: METO50TA17 PO (13:45)
[2016-07-12] MEDS ORDERED: AMOX875T PO (13:45)
--- NOTE | 2016-07-12 14:08 | Discharge Instructions ---
Discharge Instructions Date of Service Jul 12, 2016. Admission Reason for Admission: Sepsis Discharge Discharge Diagnosis / Problem: Sepsis secondary to Pneumonia; a. fib with rvr; lacunar infarct Discharge Goals Goal(s): Decrease discomfort, Improve function, Diagnostic testing, Therapeutic intervention Activity Recommendations Activity Limitations: resume your previous activity . Instructions / Follow-Up Instructions / Follow-Up Please follow-up with Dr. Ambrose on July 18 @ 11:30AM * You will be started on Amiodarone 200mg twice a day and Metoprolol 50mg twice a day - this is to control your heart rate and rhythm * You will be started on Pradaxa - this is a blood thinner to prevent future strokes * You will be given Augmentin (antibiotic) for pneumonia * Please follow-up with cardiology and neurology as outpatient Current Hospital Diet Patient's current hospital diet: Diabetes Type 2 Diet, Low Lactose Diet Discharge Diet Recommended Diet: Diabetes Type 2 Diet, Low Lactose Diet Pending Studies Studies pending at discharge: no Laboratory Results Lipid Panel Test 07/09/16 06:20 Range/Units Triglycerides Level 192 H 0-150 mg/dl Cholesterol Level 117 0-200 mg/dl HDL Cholesterol 25 mg/dl Cholesterol/HDL Ratio 4.7 LDL Cholesterol, Calculated 54 mg/dl Medical Emergencies . Who to Call and When: Medical Emergencies: If at any time you feel your situation is an emergency, please call 911 immediately. . Non-Emergent Contact Non-Emergency issues call your: Primary Care Provider . . "Provider Documentation" section prepared by Maverick Bates. VTE Core Measure Inpt VTE Proph given/why not?: Other Anticoagulation (Pradaxa)
--- NOTE | 2016-07-12 14:11 | Discharge Summary ---
Discharge Summary Date of Service Jul 12, 2016. Discharge Summary Admission Date: Jul 07, 2016 at 22:09 Discharge Date: Jul 12, 2016 Discharge Disposition: Home with services Principal Diagnosis: Hair Andrew with RVR Acute/Subacute Lacunar Infarct Sepsis secondary to pneumonia Medication Reconciliation New Medications: Amoxicillin & Pot Clavulanate (Augmentin 875-125 mg) 1 Tab Tab 1 TAB PO BID for 7 Days, #14 TAB Potassium Chloride (Klor-Con M20) 20 Meq Tabcr 20 MEQ PO DAILY for 30 Days, #30 TABS Amiodarone HCl (Amiodarone HCl) 200 Mg Tab 200 MG PO BID for 30 Days, #60 TAB Dabigatran Elexilate (Pradaxa) 75 Mg Cap 150 MG PO BID for 30 Days, #120 CAP Metoprolol Tartrate (Metoprolol Tartrate) 50 Mg Tab 50 MG PO BID for 30 Days, #60 TAB Continued Medications: Atorvastatin (Lipitor) 40 Mg Tab 40 MG PO DAILY, TAB Glimepiride (Amaryl) 2 Mg Tab 2 MG PO morning, TAB Lisinopril (Prinivil) 10 Mg Tab 10 MG PO DAILY, TAB Ondasetron Odt (Zofran Odt) 4 Mg Tab 4 MG SL Q6H for Nausea, #10 TAB Ranitidine (Zantac) 150 Mg Tab 150 MG PO BID, 0 Refills Discontinued Medications: Pioglitazone (Actos) 30 Mg Tab 1 TAB PO DAILY for 30 Days, #30 TAB 5 Refills Admission Information HPI (per Admitting provider): 66 year old female who presents to the ER with confusion. Patient was seen in the ER yesterday for nausea and diarrhea. She was diagnosed with viral gastroenteritis and sent home with a prescription for Zofran. Patient's sister in law is at the bedside who reports she spoke with the patient on the phone today and she noted she was confused. When she got to her house, she reports she was very weak and was having trouble walking. Diarrhea had been going on for 3 days. She reports she hasn't had any diarrhea for the past two days. She says she has taken Imodium. She has had a poor appetite but no nausea, vomiting , or abdominal pain. She denies fever and chills. No urinary symptoms. She denies chest pain and shortness of breath. No lightheadedness, dizziness, diaphoresis, or syncopal events. In the ER today, U/A is abnormal. CXR is showing consolidation in the left base. Creat is 1.1 (improved from 1.4 yesterday). K+ is 3.1. She has a low grade temp of 37.6 but otherwise is hemodynamically stable. She was treated with IVF, PO potassium, Levaquin, and Zosyn. Physical Exam (per Admitting): General Appearance: no apparent distress Head: normocephalic Eyes: normal inspection ENT: hearing grossly normal Neck: supple, no JVD Respiratory/Chest: no respiratory distress, + decreased breath sounds Cardiovascular: regular rate, rhythm, no edema, normal peripheral pulses Abdomen/GI: normal bowel sounds, non tender, soft Extremities/Musculoskelatal: normal inspection, no calf tenderness Neurologic/Psych: no motor/sensory deficits, alert, oriented x 3 (slow to respond) Skin: normal color, warm/dry Hospital Course This is a 66 year old female with PMH of HTN, DM2, diastolic dysfunction presented with altered mental status A. Fib with RVR 07/12 HRs have improved and she is now in sinus rhythm continue metoprolol 25mg TID, and amiodarone 200mg q6 Pradaxa for anticoagulation 07/11 appreciate cardiology input now on b-estefany and oral amiodarone HRs much improved, though alternating with A. Fib with RVR during exam, HRs in the 60s-70s 07/10 appreciate cardiology input possible cardioversion? currently patient is on an amiodarone drip received dig bind secondary to elevated digoxin levels; dig toxicity b-blockers continued given Mg x 1gram overnight, another gram today 07/09 with alternating SVTs this morning, her HRs were in the 50s during my exam later on, went back into rapid ventricular response currently on amiodarone drip given Adenosine 6mg x 1, 12mg x 1 continues to be in A. Fib was given IV digoxin multiple times appreciate cardiology input for now, will monitor with amio drip Small Acute/Subacute Lacunar Infarct 07/12 statin, Pradaxa on discharge 07/11 Brain MRI with a small acute/subacute infarct this is likely due to atrial fibrillation currently she is anticoagulated with Pradaxa cont. Statin Community Acquired Pneumonia 07/12 will obtain CXR switch to oral Augmentin on discharge 07/11 PO doxycycline continue IV Zosyn for now WBC wnl, no lactic acidosis 07/10 possible underlying metabolic encephalopathy WBC wnl, no lactic acidosis no fevers, blood pressures on the low end, likely due to antiarrhythmic and A. Fib rate controlling medications for now, continue doxy and Zosyn LETY/Dehydration - resolved 07/10 giving another 500mL bolus patient becoming hypotensive, likely related to the medications controlling HR ( as above) monitor blood pressure 07/09 likely prerenal due to poor PO intake and diarrhea Baseline creat 0.7 Cr levels 1.4 prior to admission Monitor Cr levels Gentle IVF as history of diastolic dysfunction Elevated Troponin Level likely related to her A. Fib and tachyarrhythmia Diarrhea C. diff negative possibly viral in nature monitor and adjust abx. if diarrhea is a side effect Hypokalemia - resolved HTN hold JOSE-I continue metoprolol for rate control and blood pressure control Heart Failure with Preserved Ejection Fraction ECHO 01/2016 - EF 60-64%, grade II diastolic dysfunction not on routine diuretics No signs of volume overload DM II hgb a1c 6.2 04/2016 hold oral agents SSI, accu checks would d/c glitazone on discharge DVT ppx Pradaxa FULL CODE Discharge planning: home with home health Total time spent on discharge = 45 minutes This includes examination of the patient, discharge planning, medication reconciliation, and communication with other providers. Discharge Instructions Please follow-up with Dr. Ambrose on July 18 @ 11:30AM * You will be started on Amiodarone 200mg twice a day and Metoprolol 50mg twice a day - this is to control your heart rate and rhythm * You will be started on Pradaxa - this is a blood thinner to prevent future strokes * You will be given Augmentin (antibiotic) for pneumonia * Please follow-up with cardiology and neurology as outpatient
[2016-07-12 14:15] VITALS: BP 144/84; PULSE 70; TEMP 36.7; O2SAT 95
[2016-07-12] MEDS ORDERED: METOPROLOL TARTRATE 50 MG TAB PO SCH (17:00)
[2016-07-13] MEDS ORDERED: AMIODARONE 200 MG TAB PO SCH (09:00)
[2016-07-13] MEDS ORDERED: ATORVASTATIN 40 MG TAB PO SCH (09:00)
[2016-07-14] MEDS ORDERED: AMIODARONE 200 MG TAB PO SCH (09:00)
--- NOTE | 2016-07-14 15:50 | EDITING REQUIRED CODING QUERY ---
CONGESTIVE HEART FAILURE To Promote full compliance with coding requirements relating to patient care, physician participation is requested in all cases of managed security sales consultant uncertainty. Please assist us with the following questions. A diagnosis of Heart Failure is documented in the patient's medical record. To accurately code this diagnosis and to compare patient severity, we ask that you specify the type of heart failure by placing an X within the parenthesis (x). HEART FAILURE WITH PRESERVED EJECTION FRACTION - DOCUMENTED SYSTOLIC HEART FAILURE ( ) Acute ( ) Chronic ( ) Acute on Chronic ( ) Rheumatic ( ) Unknown DIASTOLIC HEART FAILURE ( ) Acute ( ) Chronic ( ) Acute on Chronic ( ) Rheumatic ( ) Unknown COMBINED SYSTOLIC AND DIASTOLIC HEART FAILURE ( ) Acute ( ) Chronic ( ) Acute on Chronic ( ) Rheumatic ( ) Unknown Was the CHF Present On Admission? Please check the appropriate box: ( X ) Present on Admission ( ) Not Present On Admission ( ) Clinically undetermined Thank you Roselia Culp
[2017-03-06] MEDS ORDERED: AMIO200T4 PO (08:19)
[2017-03-06] MEDS ORDERED: ACT/30 PO (08:19)
[2017-03-06] MEDS ORDERED: ASPI81TA28 PO (08:19)
[2017-03-06] MEDS ORDERED: WARF5TAB90 PO (08:19)
[2017-03-06] MEDS ORDERED: ACET-1311 PO (08:19)
== END 2016-07-12 15:30 | disposition home or self-care (01) | DRG 871 ==
LOC: ENRESERVDT → ENRESERVTM → EDBD 18:01 → C.EDB 18:02 → C.2T 22:09
PROVIDERS: ADMIT Internal Medicine; ATTEND Family Medicine
DX: A41.9 Sepsis, unspecified organism (principal); J18.9 Pneumonia, unspecified organism; I63.8 Other cerebral infarction; G93.41 Metabolic encephalopathy; N17.9 Acute kidney failure, unspecified; I50.30 Unspecified diastolic (congestive) heart failure; I48.91 Unspecified atrial fibrillation; I10 Essential (primary) hypertension; E11.9 Type 2 diabetes mellitus without complications; E86.0 Dehydration; A08.4 Viral intestinal infection, unspecified; E87.6 Hypokalemia; Z85.3 Personal history of malignant neoplasm of breast; Z83.3 Family history of diabetes mellitus; Z82.49 Family history of ischemic heart disease and other diseases of the circulatory system; Z90.11 Acquired absence of right breast and nipple; T46.0X1A Poisoning by cardiac-stimulant glycosides and drugs of similar action, accidental (unintentional), initial encounter; T46.2X5A Adverse effect of other antidysrhythmic drugs, initial encounter; R19.7 Diarrhea, unspecified; R11.10 Vomiting, unspecified; Z79.899 Other long term (current) drug therapy

== ENCOUNTER → 2017-03-06 | Day surgery (SDC) | payer OTHER ==
[~2017-03-06] VITALS: Ht 157.5 cm; Wt 75.0 kg
[~2017-03-06] MED LIST changes: +ACET-1311 PO; +ACETAMINOPHEN 325 MG TAB PO PRN; +ACT/30 PO; +AMIO200T4 PO; +ASPI81TA28 PO; +ATROPINE SULFATE 0.1 MG/ML 5ML SYR IV PRN; +CRD200 PO; +FENTANYL CITRATE INJ 50 MCG/1 ML 2 ML VIAL ONE; +HEPARIN SOD (PORCINE) 1000 UNIT/ML 10 ML VIAL ONE; -LISI-729 PO; +LISI10TA PO; +MCRK20 PO; +METO50TA17 PO; +MIDAZOLAM HCL 1 MG/ML 2ML VIAL ONE; +NITROGLYCERIN/D5W 100MCG/ML 20ML SYR ONE; +NiCARDipine HCL INJ 2.5 MG/ML 10 ML AMP ONE; -ONDA4TAB10 SL; +ONDANSETRON INJ 2 MG/ML 2 ML VIAL IV PRN; +PRD75 PO; +SODIUM CHLORIDE 0.9% 1000ML 250 ML IV PRN; +WARF5TAB90 PO
[2017-03-06 09:44] VITALS: BP 153/65; PULSE 63; TEMP 36.5; O2SAT 97; Ht 157.5 cm; Wt 75.0 kg
--- NOTE | 2017-03-06 11:57 | History & Physical Bridge Note ---
H&P Re-Evaluation Bridge Note: I have examined the patient, reviewed the History & Physical and in the interval since the performance of the History & Physical I have noted the following changes of clinical significance: No changes noted
--- NOTE | 2017-03-06 11:58 | Procedure Note ---
Pre-Mod Sedation Assessment General Date of Moderate Sedation: Mar 06, 2017. Vital Signs: Vital Signs Past 12 Hours Date Time Temp Pulse Resp B/P (MAP) Pulse Ox O2 Delivery O2 Flow Rate FiO2 03/06/17 11:50 67 16 131/67 (88) 98 Room Air 03/06/17 09:44 36.5 63 16 153/65 97 Room Air Review Cardiovascular: regular rate, rhythm, no edema, no gallop, no JVD, no murmur Abdomen: normal bowel sounds, non tender, soft, no organomegaly Lungs: chest non-tender, lungs clear, normal breath sounds Pre-Sedation Airway Assessment Oral Cavity: WNL Short Thick Neck: No Hx of Sleep Apnea: No Smoking Status: Never Smoker Mallampati Classification: Class III ASA Classification: Class II Procedure Planning Contraindications-for Mod Sed: None Yes Notes The planned sedation has been discussed with the patient and consent obtained. I have identified the patient, determined the appropriateness of sedation and have assessed the patient immediately prior to the procedure. All medicine(s) and interventions are by my order.
--- NOTE | 2017-03-06 11:59 | Procedure Note ---
Post-Mod Sedation Assessment General Date of Moderate Sedation Mar 06, 2017. Vital Signs: Vital Signs Past 12 Hours Date Time Temp Pulse Resp B/P (MAP) Pulse Ox O2 Delivery O2 Flow Rate FiO2 03/06/17 11:50 67 16 131/67 (88) 98 Room Air 03/06/17 09:44 36.5 63 16 153/65 97 Room Air Review - Discharge Criteria Vital Signs Stable: Yes Alert/Oriented/Conversant: Yes Returned to Baseline Mental St: Yes Nausea Absent/Minimal: Yes Pain/Discomfort/Absent/Minimal: Yes Normal/Baseline Respirations: Yes Active Bleeding?: No Pt Received D/C Instructions: Yes Prescriptions Given: None Specific Proced. D/C Criteria Distal Pulses Present (Cardiac: Yes Groin site assessed-Card Cath: N/A Voided Prior To Discharge: Yes Discharged Patients Adult Escort/Transportation: Yes
--- NOTE | 2017-03-06 12:06 | Cardiac Catheterization ---
Procedure Note Procedure Date Mar 06, 2017. Pre-Procedure Diagnosis Positive Stress Test, Cardiothoracic Symptom AUC Score 7 Post-Procedure Diagnosis Mild CAD Procedure(s) Performed Coronary Angiography, Left Heart Cath Head Piece Assembler Dr. Fontaine Rotating Field Assembler(s) Benjy SLOT ATTENDANT Estimated Blood Loss 5cc Medication(s) Fentanyl, Heparin, Nicardipine, Nitroglycerin, Versed, Lidocaine 1% Summary of Findings Mild non-obstructive CAD. Hemodynamics Rest Ao: 126/56/87 Final Ao: 137/56/91 LV: 131/-2/16 Recommendations Medical therapy and/or Counseling Specimens None Radiation Exposure (mGy) 927 Contrast (mls) 30 Anesthesia Moderate sedation. Start 1134. Stop 1150. Sedation monitor Victor Manuel Galaviz RN. Procedural Complication(s) None Disposition Shell Core And Molding Supervisor Holding/Recovery ACC Data Cardiac Status Clinical evaluation leading to the procedure CAD Presntation: Positive Stress Test Anginal Classification: CCS II Heart Failure: No Cardiogenic Shock w/in 24Hrs: No Cardiac Arrest w/in 24Hrs: No Imaging studies past 6 months: Yes Stress studies past 6 months: Yes Stress Testing w/SPECT MPI: Yes - Positive, Risk/Extent of Ischemia (High) Coronary Anatomy Dominant: Right Left Main (% Stenosis): Normal LAD (% Stenosis): Proximal (30%) D1 (% Stenosis): Normal D2 (% Stenosis): Normal Circumflex (% Stenosis): Normal OM1 (% Stenosis): Normal OM2 (% Stenosis): Normal RCA (% Stenosis): Proximal (20%) R PDA (% Stenosis): Normal R PL1 (% Stenosis): Normal R PL2 (% Stenosis): Normal AM (% Stenosis): Normal Ramus (% Stenosis): Normal Diagnostic Status: Elective Closure Device Percutaneous Entry Location: Radial Closure Device: Radial Band Recommendations: Medical therapy and/or Counseling Intraprocedure Events Significant Dissection: No Perforation: No
--- NOTE | 2017-03-06 12:14 | Discharge Instructions ---
Discharge Instructions Procedure Procedure Date: Mar 06, 2017. Reason for Visit: Abnormal Nuc Stress *Dr Fontaine To Do*. Discharge Discharge Date: Mar 06, 2017. Discharge Diagnosis: Status post cardiac catheterization. Mild non-obstructive CAD. Last Recorded Wt (Kilograms): 75 Anesthesia Post Anesthesia Instructions: If you have had General Anesthesia or IV Sedation: * Do not drive today. * Resume driving when surgeon permits. * Do not make important decisions or sign legal documents today. * Call surgeon for: 1. Temperature elevations greater than 101 degrees F. 2. Uncontrollable pain. 3. Excessive bleeding. 4. Persistent nausea and vomiting. 5. Medication intolerance (nausea, vomiting or rash). * For nausea and vomiting use only clear liquids such as: tea, soda, bouillon until nausea subsides, then gradually increase diet as tolerated. * If you have any concerns or questions, call your surgeon's office. If physician is unavailable and it is an emergency, call 911 or go to the nearest emergency room. Instructions Activity Recommendations: limitations as noted below Return to School/Work: with the following limitations Recommended Home Diet: low sodium, low cholesterol Allergies: Coded Allergies: Metformin (Unverified Adverse Reaction, Intermediate, n/v, 07/06/16) Provider Instructions ACTIVITY RECOMMENDATIONS: Excess manipulation of the wrist should be avoided for the next 24-48 hours. * No lifting over 2 pounds (approximately a 1/2 gallon of milk) with the utilized arm for 24 hours. * No strenuous activity such as bowling or tennis for 3 days. * Keep the site of the procedure covered with a bandage for 24 hours. *You may shower the day after the procedure. Do not take a tub bath or submerge the puncture site in water for the next 3 days. *Do not operate any motorized equipment for 3 days. SPECIAL CARE INSTRUCTIONS: The site may be slightly bruised and sore following your procedure. Should any of the following occur, contact the DrYakov who performed your procedure. 1. Redness/inflammation, swelling, chills, or fever, or colored drainage at procedure site within 3-7 days after your procedure. 2. Coldness, discoloration, ongoing numbness, severe pain, or swelling. Expect mild tingling of hand and tenderness at the puncture site for up to three days. If this persists beyond three days, or other symptoms develop, notify the Dr. who performed your procedure. BLEEDING: If the procedure site on your wrist begins to bleed, do not panic 1. Place 1 or 2 fingers firmly just slightly above the insertion site to stop the bleeding. You may be able to feel your pulse as you hold pressure. 2. Lift your finger after 5 minutes to see if the bleeding has stopped. 3. Once the bleeding has stopped, gently wipe the wrist area clean with a bandage. * If the bleeding from your wrist does not stop after 10 minutes, or if there is a large amount of bleeding or spurting, call 911 (do not drive yourself to the hospital). SKIN IRRITATION: * You may experience some redness and/or swelling in the area where radiation was administered. If any skin irritation occurs, please contact your family physician. FOLLOW UP VISIT: Keep any scheduled doctor appointments. Follow Up Follow-up with: Alphonso Becerra PA-C as scheduled. Nehemias Sethi Recommendations: Call your doctor if: * Temperature above 101 degrees * Pain not relieved by pain medicine ordered * There is increased drainage or redness from any incision * You have any unanswered questions or concerns. Your Doctors Instructions noted above were prepared by provider Leonardo Fontaine. Patient Signature Section: Patient Instructions Signature Page Autumn Irwin Patient (or Guardian) Signature/Date: I have read and understand the instructions given to me by my caregivers. Caregiver/RN/Doctor Signature/Date: The above-named patient and/or guardian has received patient instructions on this date. + Original Patient Signature Page (only) stays with chart. Please make copy for patient.
[2017-03-06 14:10] VITALS: BP 128/52; PULSE 56; O2SAT 98
== END | disposition home or self-care (01) ==
LOC: C.CATH 08:41
PROVIDERS: ATTEND Internal Medicine Cardiovascular Disease
DX: I25.10 Atherosclerotic heart disease of native coronary artery without angina pectoris (principal); R06.02 Shortness of breath; I48.0 Paroxysmal atrial fibrillation; I10 Essential (primary) hypertension; E78.5 Hyperlipidemia, unspecified; E11.9 Type 2 diabetes mellitus without complications; K21.9 Gastro-esophageal reflux disease without esophagitis; Z85.3 Personal history of malignant neoplasm of breast; Z90.89 Acquired absence of other organs; Z82.49 Family history of ischemic heart disease and other diseases of the circulatory system; Z79.01 Long term (current) use of anticoagulants; Z80.42 Family history of malignant neoplasm of prostate; Z79.82 Long term (current) use of aspirin